=== PATIENT | male | born 1960 | race Caucasian/White ===

== ENCOUNTER 2017-09-13 11:22 | Emergency (ER) | payer OTHER, SELFPAY ==
[2017-09-13] MEDS ORDERED: DUONEB 0.5-3 MG/3 ml Neb IH ONE ×2 (11:41→11:46)
[2017-09-13] MEDS ORDERED: BABY ASPIRIN 81 MG CHEW ONE (11:41)
[2017-09-13] MEDS ORDERED: BABY ASPIRIN 81 MG CHEW PO ONE (11:41)
--- NOTE | 2017-09-13 11:48 | ERPHSYRPT ---
- History of Present Illness Time Seen by Provider: 09/13/17 11:35 Historian: patient Exam Limitations: no limitations Patient Subjective Stated Complaint: pt here for chest pain to center of chest nonradiating since 1000 today, sob and cough ,coughing up green sputum. no fever , pt under lots of stress Triage Nursing Assessment: pt alert,walked in, resp easy,chest clear, skin warm but moist, pink, no edema noted, Physician History: 57-year-old white male arrives with complaint of tightness in his chest shortness of breath coughing green sputum symptoms for 2 days states today began to have pain and tightness in his anterior chest associated with shortness of breath nausea diaphoresis going on since 10:00 Past medical history includes peripheral neuropathy TIA sleep apnea hyperlipidemia, high blood pressure, GERD, depression patient has had a DVT in his right leg past surgical history includes hernia repair Timing/Duration: day(s) (patient was shortness of breath chest tightness diaphoresis for 2 dayswhich began today at 10:00 again) Activities at Onset: none Quality: tightness Location: substernal Chest Pain Radiation: no radiation Severity of Pain-Max: moderate Severity of Pain-Current: mild Modifying Factors: Improves With: nothing Associated Symptoms: nausea, shortness of breath, cough, hurts to breathe, No vomiting, No palpitations, No heartburn, No abdominal pain, No diaphoresis, No chills, No fever, No fatigue, No weakness, No swelling/lump in chest, No syncope , No rash, No headache, No dizziness, No edema, No back pain Nitro Today/Relief: no nitro taken today Aspirin Treatment Today: 81 mg x 1 Allergies/Adverse Reactions: No Known Drug Allergies Allergy (Verified 09/13/17 11:30) Home Medications: Allopurinol 300 mg [Zyloprim 300 mg] 300 mg PO DAILY 06/25/13 [History] Duloxetine HCl 30 mg [Cymbalta 30 MG Capsule] 60 mg PO DAILY 06/25/13 [ History] Multivitamin [Daily Multivitamin] 1 each PO DAILY 06/25/13 [History] Nebivolol HCl 5 MG [Bystolic 5 MG] 5 mg PO HS 06/25/13 [History] Pantoprazole 20 mg [Protonix 20MG Tablet] 40 mg PO DAILY 06/25/13 [History ] Cyanocobalamin (Vitamin B-12) [Vitamin B-12] 1 dose SL DAILY 06/26/13 [History] Albuterol 2.5 mg/3 ml Neb [Proventil 2.5 mg/3 ml Neb] 3 ml BID 09/13/17 [ History] Baclofen 10 mg [Lioresal 10 mg] 10 mg DAILY 09/13/17 [History] Budesonide/Formoterol Fumarate [Symbicort 160-4.5 Mcg Inhaler] 10.2 gm BID 09/13 [History] Bumetanide 1 mg [Bumex 1 mg] 09/13/17 [History] Bumetanide [Bumex] 1 mg DAILY 09/13/17 [History] Gabapentin 100 mg TID 09/13/17 [History] Ipratropium/Albuterol Sulfate [Combivent Inhaler] 14.7 gm QID 09/13/17 [History] Prednisone 10 mg [Deltasone 10 mg] 10 mg DAILY 09/13/17 [History] Hx Tetanus, Diphtheria Vaccination/Date Given: No Hx Influenza Vaccination/Date Given: No Hx Pneumococcal Vaccination/Date Given: No Immunizations Up to Date: Yes - Review of Systems Constitutional: No Fever, No Chills Eyes: No Symptoms Ears, Nose, & Throat: No Symptoms, No Ear Pain, No Ear Discharge, No Hearing Changes, No Tinnitus, No Nose Pain, No Nose Congestion, No Nose Discharge, No Sinus Drainage, No Epistaxis, No Mouth Pain, No Mouth Swelling, No Loose Teeth, No Throat Pain, No Throat Swelling, No Hoarse, No Painful Swallowing, No Snoring , No Stridor Respiratory: Cough, Dyspnea, No Cyanosis, No Dyspnea on Exertion (BARRY), No Stridor, No Wheezing Cardiac: Chest Pain, No Edema, No Palpitations, No Syncope, No Orthopnea, No PND Abdominal/Gastrointestinal: Nausea, No Abdominal Pain, No Vomiting, No Diarrhea , No Constipation, No Hematemesis, No Hematochezia, No Melena, No Dysphagia, No Appetite Changes Genitourinary Symptoms: No Dysuria Musculoskeletal: No Back Pain, No Neck Pain Skin: No Rash Neurological: No Dizziness, No Focal Weakness, No Sensory Changes Psychological: No Symptoms Endocrine: No Symptoms All Other Systems: Reviewed and Negative - Past Medical History Pertinent Past Medical History: Yes Neurological History: Peripheral Neuropathy, TIA ENT History: No Pertinent History Cardiac History: High Cholesterol, Hypertension, Other Respiratory History: Emphysema, Sleep Apnea Endocrine Medical History: No Pertinent History Musculoskeletal History: No Pertinent History GI Medical History: GERD History: No Pertinent History Psycho-Social History: Depression Male Reproductive Disorders: No Pertinent History Other Medical History: Hx: DVT right leg - Past Surgical History Past Surgical History: Yes Neuro Surgical History: No Pertinent History Cardiac: Cardiac Catheterization Respiratory: No Pertinent History Gastrointestinal: Hernia Repair Genitourinary: No Pertinent History Musculoskeletal: No Pertinent History Male Surgical History: No Pertinent History - Social History Smoking Status: Current every day smoker How long have you smoked: 10 Exposure to second hand smoke: Yes Drug Use: none Patient Lives Alone: No - Nursing Vital Signs Nursing Vital Signs: Initial Vital Signs Temperature 97.9 F 09/13/17 11:24 Pulse Rate 75 09/13/17 11:24 Respiratory Rate 24 09/13/17 11:24 Blood Pressure 132/76 09/13/17 11:24 O2 Sat by Pulse Oximetry 97 09/13/17 11:24 Pain Scale Pain Intensity 0 - Physical Exam General Appearance: no apparent distress, alert Eye Exam: PERRL/EOMI, eyes nml inspection Ears, Nose, Throat Exam: normal ENT inspection, moist mucous membranes Neck Exam: normal inspection, non-tender, supple, full range of motion Respiratory Exam: airway intact, rhonchi, wheezing, other (scattered rhonchi with few faint wheezes bilaterally lungs equal bilaterally), No chest tenderness , No lungs clear, No respiratory distress, No diminished breath sounds, No accessory muscle use, No prolonged expirations, No crackles/rales Cardiovascular Exam: regular rate/rhythm, normal heart sounds, normal peripheral pulses Gastrointestinal/Abdomen Exam: soft, No tenderness, No mass Back Exam: normal inspection, No CVA tenderness, No vertebral tenderness Extremity Exam: normal inspection, normal range of motion Neurologic Exam: alert, oriented x 3, cooperative, presentation specialist II-XII nml as tested, normal mood/affect, sensation nml, No motor deficits Skin Exam: normal color, warm, dry SpO2 Interpretation: normal (97%) SpO2: 97 Oxygen Delivery: Room Air - Course Nursing assessment & vital signs reviewed: Yes EKG Interpreted by Me: RATE (69 bpm), Sinus Rhythm, NORMAL AXIS, Other (EKG sinus rhythm 69 bpm normal axis incomplete right bundle branch block no acute ST or T wave changes noted) - Radiology Exams Chest X-ray Interpretation: Discussed w/ radiologist (chest x-ray: Impression: Non- acute chest) Ordered Tests: Active Orders 24 hr Category Date Time Status Millwright Instructor STAT Care 09/13/17 11:40 Active EKG-ER Only STAT Care 09/13/17 11:39 Active IV Insertion STAT Care 09/13/17 11:39 Active Pulse Oximetry (ED) STAT Care 09/13/17 11:39 Active CHEST 1 VIEW (PORTABLE) Stat Exams 09/13/17 11:39 Completed AMYLASE Stat Lab 09/13/17 12:25 Completed CBC W DIFF Stat Lab 09/13/17 11:30 Completed CMP Stat Lab 09/13/17 11:30 Completed D-DIMER QUANTITATION Stat Lab 09/13/17 11:30 Completed LIPASE Stat Lab 09/13/17 12:25 Completed NT PRO BNP Stat Lab 09/13/17 11:30 Completed PROTIME WITH INR Stat Lab 09/13/17 11:30 Completed PTT Stat Lab 09/13/17 11:30 Completed TROPONIN Q3H Lab 09/13/17 11:30 Completed TROPONIN Q3H Lab 09/13/17 14:45 Completed TROPONIN Q3H Lab 09/13/17 17:45 Ordered TROPONIN Q3H Lab 09/13/17 20:45 Ordered TROPONIN Q3H Lab 09/13/17 23:45 Ordered Respiratory Nebulizer STAT RT 09/13/17 11:41 Completed Medication Summary Discontinued Medications Generic Name Dose Route Start Last Admin Trade Name Freq PRN Reason Stop Dose Admin Albuterol/Ipratropium 3 ml 09/13/17 11:41 09/13/17 11:45 Duoneb 0.5-3 Mg/3 Ml Neb IH 09/13/17 11:42 3 ml STAT ONE Administration Albuterol/Ipratropium Confirm 09/13/17 11:46 Duoneb 0.5-3 Mg/3 Ml Neb Administered 09/13/17 11:47 Dose 3 ml IH .STK-MED ONE Aspirin 243 mg 09/13/17 11:41 09/13/17 11:45 Baby Aspirin 81 Mg Chew PO 09/13/17 11:42 243 mg STAT ONE Administration Aspirin Confirm 09/13/17 11:41 Baby Aspirin 81 Mg Chew Administered 09/13/17 11:42 Dose 243 mg .ROUTE .STK-MED ONE Lab/Rad Data: Laboratory Result Diagrams 09/13/17 11:30 09/13/17 11:30 Laboratory Results 09/13/17 09/13/17 09/13/17 Range/Units 14:45 12:25 11:30 WBC (4.0-10.5) K/mm3 RBC (4.1-5.6) M/mm3 Hgb (12.5-18.0) gm/dl Hct (42-50) % MCV (78-100) fl MCH (26-32) pg MCHC (32-36) g/dl RDW (11.5-14.0) % Plt Count (150-450) K/mm3 MPV (6-9.5) fl Gran % (36.0-66.0) % Lymphocytes % (24.0-44.0) % Monocytes % (0.0-12.0) % Eosinophils % (0.00-5.0) % Basophils % (0.0-0.4) % Basophils # (0-0.4) INR (0.8-3.0) APTT (24.1-36.1) SECONDS D-Dimer (0-500) ng/mL Sodium (136-145) mEq/L Potassium (3.5-5.1) mEq/L Chloride (98-107) mEq/L Carbon Dioxide (21-32) mEq/L Anion Gap (5-15) MEQ/L BUN (9-20) mg/dL Creatinine (0.55-1.30) mg/dl Estimated GFR ML/MIN Glucose (70-110) MG/DL Calcium (8.5-10.1) mg/dL Total Bilirubin (0.2-1.0) mg/dL AST (15-37) U/L ALT (12-78) U/L Alkaline Phosphatase (46-116) U/L Troponin I < 0.017 < 0.017 (0.000-0.056) ng/ml NT-Pro-B Natriuret Pep (0-125) pg/ml Serum Total Protein (6.4-8.2) gm/dL Albumin (3.4-5.0) g/dL Amylase 53 (25-115) U/L Lipase 232 (73-393) U/L 09/13/17 09/13/17 09/13/17 Range/Units 11:30 11:30 11:30 WBC 9.1 (4.0-10.5) K/mm3 RBC 4.93 (4.1-5.6) M/mm3 Hgb 14.8 (12.5-18.0) gm/dl Hct 44.0 (42-50) % MCV 89.2 (78-100) fl MCH 30.0 (26-32) pg MCHC 33.6 (32-36) g/dl RDW 13.3 (11.5-14.0) % Plt Count 258 (150-450) K/mm3 MPV 11.9 H (6-9.5) fl Gran % 78.4 H (36.0-66.0) % Lymphocytes % 13.9 L (24.0-44.0) % Monocytes % 6.5 (0.0-12.0) % Eosinophils % 1.0 (0.00-5.0) % Basophils % 0.2 (0.0-0.4) % Basophils # 0.02 (0-0.4) INR 1.07 (0.8-3.0) APTT 28.6 (24.1-36.1) SECONDS D-Dimer 383 (0-500) ng/mL Sodium 143 (136-145) mEq/L Potassium 3.9 (3.5-5.1) mEq/L Chloride 106 (98-107) mEq/L Carbon Dioxide 26.1 (21-32) mEq/L Anion Gap 14.9 (5-15) MEQ/L BUN 19 (9-20) mg/dL Creatinine 1.18 (0.55-1.30) mg/dl Estimated GFR > 60 ML/MIN Glucose 141 H (70-110) MG/DL Calcium 9.6 (8.5-10.1) mg/dL Total Bilirubin 0.30 (0.2-1.0) mg/dL AST 51 H (15-37) U/L ALT 40 (12-78) U/L Alkaline Phosphatase 67 (46-116) U/L Troponin I (0.000-0.056) ng/ml NT-Pro-B Natriuret Pep 46 (0-125) pg/ml Serum Total Protein 8.0 (6.4-8.2) gm/dL Albumin 3.9 (3.4-5.0) g/dL Amylase (25-115) U/L Lipase (73-393) U/L - Progress Progress: improved Air Movement: fair Progress Note: 09/13/17 12:46 Patient feeling better and pain-free after DuoNeb treatment and aspirin. Troponin within normal limits d-dimer within normal limits chest x-ray no acute changes EKG no acute changes as compared to 2013. I've discussed possibly discussing case with Dr. Bauman and the considering placement on observation for rule out. Patient states he does not want to do this. Will go ahead and plan on repeat troponin 3 hours from last draw. 09/13/17 15:25 Patient's repeat troponin within normal limits patient with no more chest pain patient has been stable on the monitor. Patient wants to go home. Will discharge patient. Will place patient on prednisone and Zithromax. He has an inhaler at home. - Departure Time of Disposition: 15:26 Departure Disposition: Home Clinical Impression: Bronchitis, Bronchospasm Chest pain Qualifiers: Chest pain type: unspecified Qualified Code(s): R07.9 - Chest pain, unspecified Condition: Fair Critical Care Time: No Referrals: ROBERT YATES [Primary Care Provider] - Additional Instructions: Return home, rest. Tapering dose of prednisone as directed. Zithromax Z-ANGELIC as directed. Use your inhaler as prescribed by your family doctor. Follow-up with your family doctor. Call today and schedule an appointment. Return for acute distress or for severe symptoms. Prescriptions: Azithromycin 250 mg [Zithromax 250 MG TABLET] 0 mg PO ZPACK #6 tablet
[2017-09-13 11:57] LABS: BASOPHIL % 0.2 % (0.0-0.4); Granulocytes % 78.4 % (36.0-66.0); Lymphocytes % 13.9 % (24.0-44.0); Mean Cell Volume 89.2 fl (78-100); Mean Platelet Volume 11.9 fl (6-9.5); Monocytes % 6.5 % (0.0-12.0); Platelet Count 258 K/mm3 (150-450); Red Blood Count 4.93 M/mm3 (4.1-5.6); Red Cell Distribution Width 13.3 % (11.5-14.0); White Blood Count 9.1 K/mm3 (4.0-10.5)
--- NOTE | 2017-09-13 11:59 | XRAY ---
Indication: Chest pain short of breath. Comparison: May 24, 2016. Portable apical lordotic chest less inflated today and remains clear again with a few incidental calcified granulomas. Heart is not enlarged. Bony thorax intact. Impression: Nonacute chest.
[2017-09-13 12:14] LABS: INR 1.07 (0.8-3.0); PROTIME 11.9 SECONDS (8.83-12.87)
[2017-09-13 12:17] LABS: PTT 28.6 SECONDS (24.1-36.1)
[2017-09-13 12:26] LABS: ALBUMIN 3.9 g/dL (3.4-5.0); ALKALINE PHOSPHATASE 67 U/L (46-116); ANION GAP 14.9 MEQ/L (5-15); BLOOD UREA NITROGEN 19 mg/dL (9-20); CHLORIDE 106 mEq/L (98-107); Carbon Dioxide 26.1 mEq/L (21-32); Glucose 141 MG/DL (70-110); Potassium 3.9 mEq/L (3.5-5.1); SGOT/AST 51 U/L (15-37); SGPT/ALT 40 U/L (12-78); SODIUM 143 mEq/L (136-145)
[2017-09-13 12:48] LABS: LIPASE 232 U/L (73-393)
[2017-09-13 15:29] VITALS: BP 127/57; PULSE 68
[2017-09-13 15:31] VITALS: O2SAT 97
== END 2017-09-13 15:35 | disposition home or self-care (01) ==
LOC: ED 11:22
DX: R07.89 Other chest pain (principal); J40 Bronchitis, not specified as acute or chronic; J98.01 Acute bronchospasm; Z79.899 Other long term (current) drug therapy; I10 Essential (primary) hypertension; E78.5 Hyperlipidemia, unspecified; R11.0 Nausea
CPT/HCPCS: 36000; 36415; 71010; 80053; 82150; 83690; 83880; 84484; 85025; 85379; 85610; 85730; 93005; 93041; 94640; 99284; A9270-GY

== ENCOUNTER 2018-06-25 18:57 | Emergency (ER) | payer OTHER ==
--- NOTE | 2018-06-25 19:20 | ERPHSYRPT ---
- History of Present Illness Time Seen by Provider: 06/25/18 19:00 Source: patient, family Exam Limitations: no limitations Physician History: 58 y/o obese white male with copd presents with soa and cough. 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 better now but still with sx. pt uses oxygen at night and a cpap machine. pt currently denies cp but had mild substernal pain during the coughing spell captain waiter/waitress. pt has a smoking hx but denies smoking currently. pt is on prednisone chronically Timing/Duration: today Activities at Onset: none Severity of Dyspnea-Max: moderate Severity of Dyspnea-Current: mild Possible Cause: occasional episodes Modifying Factors: Improves With: coughing, exertion Associated Symptoms: cough, chest pain/discomfort, No fever, No weakness, No ankle swelling, No dizziness Allergies/Adverse Reactions: No Known Drug Allergies Allergy (Verified 06/25/18 20:11) Home Medications: Allopurinol 300 mg [Zyloprim 300 mg] 300 mg PO DAILY 06/25/13 [History] Duloxetine HCl 30 mg [Cymbalta 30 MG Capsule] 90 mg PO DAILY 06/25/13 [ History] Multivitamin [Daily Multivitamin] 1 each PO DAILY 06/25/13 [History] Nebivolol HCl 5 MG [Bystolic 5 MG] 5 mg PO HS 06/25/13 [History] Pantoprazole 20 mg [Protonix 20MG Tablet] 40 mg PO DAILY 06/25/13 [History ] Albuterol 2.5 mg/3 ml Neb [Proventil 2.5 mg/3 ml Neb] 3 ml BID 09/13/17 [ History] Bumetanide [Bumex] 1 mg DAILY 09/13/17 [History] Gabapentin 100 mg TID 09/13/17 [History] Ipratropium/Albuterol Sulfate [Combivent Inhaler] 14.7 gm QID 09/13/17 [History] Prednisone 10 mg [Deltasone 10 mg] 10 mg DAILY 09/13/17 [History] Metformin HCl 500 mg [Glucophage 500 MG] 1,000 mg PO DAILY 06/25/18 [ History] Hx Tetanus, Diphtheria Vaccination/Date Given: No Hx Influenza Vaccination/Date Given: No Hx Pneumococcal Vaccination/Date Given: No - Review of Systems Constitutional: No Symptoms, No Fever, No Chills Eyes: No Symptoms Ears, Nose, & Throat: No Symptoms Respiratory: Cough, Dyspnea, Wheezing Cardiac: No Symptoms, Chest Pain, No Palpitations, No Syncope Abdominal/Gastrointestinal: No Symptoms, No Abdominal Pain, No Nausea, No Vomiting, No Diarrhea Genitourinary Symptoms: No Symptoms Musculoskeletal: No Symptoms, No Back Pain, No Fall, No Injury Neurological: No Symptoms Psychological: No Symptoms Endocrine: No Symptoms Hematologic/Lymphatic: No Symptoms Immunological/Allergic: No Symptoms All Other Systems: Reviewed and Negative - Past Medical History Pertinent Past Medical History: Yes Neurological History: Peripheral Neuropathy, TIA ENT History: No Pertinent History Cardiac History: High Cholesterol, Hypertension, Other Respiratory History: Emphysema, Sleep Apnea Endocrine Medical History: No Pertinent History Musculoskeletal History: No Pertinent History GI Medical History: GERD History: No Pertinent History Psycho-Social History: Depression Male Reproductive Disorders: No Pertinent History Other Medical History: Hx: DVT right leg - Past Surgical History Past Surgical History: Yes Neuro Surgical History: No Pertinent History Cardiac: Cardiac Catheterization Respiratory: No Pertinent History Gastrointestinal: Hernia Repair Genitourinary: No Pertinent History Musculoskeletal: No Pertinent History Male Surgical History: No Pertinent History - Social History Smoking Status: Current every day smoker How long have you smoked: 10 Exposure to second hand smoke: Yes Drug Use: none Patient Lives Alone: No - Nursing Vital Signs Nursing Vital Signs: Initial Vital Signs Pulse Rate 73 06/25/18 18:57 Respiratory Rate 14 06/25/18 18:57 Blood Pressure 151/94 06/25/18 18:57 O2 Sat by Pulse Oximetry 97 06/25/18 18:57 Pain Scale Pain Intensity 0 - Physical Exam General Appearance: mild distress, alert, anxiety Eye Exam: PERRL/EOMI, post op pupil defect (L) Ears, Nose, Throat Exam: hearing grossly normal, normal ENT inspection, normal pharynx Neck Exam: normal inspection, non-tender, supple, full range of motion Respiratory Exam: normal breath sounds, lungs clear, airway intact, stridor, No chest tenderness, No respiratory distress, No accessory muscle use, No wheezing Cardiovascular/Chest Exam: normal heart sounds, regular rate/rhythm, normal peripheral pulses Abdominal/Gastrointestinal Exam: soft, normal bowel sounds, No tenderness, No guarding, No rebound Rectal Exam: deferred Extremity Exam: non-tender, normal range of motion, normal inspection, normal capillary refill Peripheral Pulses Exam: carotid (R): 2+, carotid (L): 2+, femoral (R): 2+, femoral (L): 2+ Neurologic Exam: alert, oriented x 3, cooperative, 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 II-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 nml as tested, normal mood/affect, nml cerebellar function, nml station & gait Skin Exam: normal color, warm, dry Lymphatic Exam: No adenopathy SpO2 Interpretation: normal SpO2: 97 Oxygen Delivery: Nasal Cannula - Course Nursing assessment & vital signs reviewed: Yes EKG Interpreted by Me: RATE, Sinus Rhythm, NORMAL AXIS, Right Bundle Branch Block, NORMAL ST-T (comparison 06/26/13 no sig changes), Other (incomplete left ant fascicular block) Ordered Tests: Active Orders 24 hr Category Date Time Status Agile Project Manager STAT Care 06/25/18 19:27 Active EKG-ER Only STAT Care 06/25/18 19:26 Active IV Insertion STAT Care 06/25/18 19:26 Active Oxygen-ED Only NASAL CANNULA 2 lpm Care 06/25/18 19:26 Active Pulse Oximetry (ED) STAT Care 06/25/18 19:26 Active CHEST 1 VIEW (PORTABLE) Stat Exams 06/25/18 19:26 Taken CBC W DIFF Stat Lab 06/25/18 19:07 Completed CMP Stat Lab 06/25/18 19:07 Completed NT PRO BNP Stat Lab 06/25/18 19:07 Completed TROPONIN Q3H Lab 06/25/18 19:07 Completed TROPONIN Q3H Lab 06/25/18 22:30 Ordered TROPONIN Q3H Lab 06/26/18 01:30 Ordered TROPONIN Q3H Lab 06/26/18 04:30 Ordered TROPONIN Q3H Lab 06/26/18 07:30 Ordered Respiratory Nebulizer STAT RT 06/25/18 19:28 Completed Medication Summary Discontinued Medications Generic Name Dose Route Start Last Admin Trade Name Freq PRN Reason Stop Dose Admin Albuterol/Ipratropium 3 ml 06/25/18 19:26 06/25/18 19:43 Duoneb 0.5-3 Mg/3 Ml Neb IH 06/25/18 19:27 3 ml STAT ONE Administration Albuterol/Ipratropium Confirm 06/25/18 19:42 Duoneb 0.5-3 Mg/3 Ml Neb Administered 06/25/18 19:43 Dose 3 ml IH .STK-MED ONE Methylprednisolone Sodium Succinate 125 mg 06/25/18 19:26 06/25/18 19:31 Solu-Medrol 125 Mg IV 06/25/18 19:27 125 mg STAT ONE Administration Methylprednisolone Sodium Succinate Confirm 06/25/18 19:30 Solu-Medrol 125 Mg Administered 06/25/18 19:31 Dose 125 mg .ROUTE .STK-MED ONE Lab/Rad Data: Laboratory Result Diagrams 06/25/18 19:07 06/25/18 19:07 Laboratory Results 06/25/18 06/25/18 06/25/18 Range/Units 19:07 19:07 19:07 WBC 10.1 (4.0-10.5) K/mm3 RBC 5.19 (4.1-5.6) M/mm3 Hgb 15.5 (12.5-18.0) gm/dl Hct 44.3 (42-50) % MCV 85.4 (78-100) fl MCH 29.9 (26-32) pg MCHC 35.0 (32-36) g/dl RDW 13.0 (11.5-14.0) % Plt Count 247 (150-450) K/mm3 MPV 11.5 H (6-9.5) fl Gran % 65.5 (36.0-66.0) % Eos # (Auto) 0.16 (0-0.5) Absolute Lymphs (auto) 2.42 (1.0-4.6) Absolute Monos (auto) 0.89 (0.0-1.3) Lymphocytes % 23.9 L (24.0-44.0) % Monocytes % 8.8 (0.0-12.0) % Eosinophils % 1.6 (0.00-5.0) % Basophils % 0.2 (0.0-0.4) % Absolute Granulocytes 6.64 (1.4-6.9) Basophils # 0.02 (0-0.4) Sodium 145 (137-145) mmol/L Potassium 3.6 (3.5-5.1) mmol/L Chloride 105 (98-107) mmol/L Carbon Dioxide 27 (22-30) mmol/L Anion Gap 16.7 H (5-15) MEQ/L BUN 31 H (9-20) mg/dL Creatinine 1.23 (0.66-1.25) mg/dL Estimated GFR > 60.0 ML/MIN Glucose 115 H (74-106) mg/dL Calcium 10.5 H (8.4-10.2) mg/dL Total Bilirubin 0.40 (0.2-1.3) mg/dL AST 34 (17-59) U/L ALT 42 (0-50) U/L Alkaline Phosphatase 91 (38-126) U/L Troponin I < 0.012 (0.000-0.034) ng/mL NT-Pro-B Natriuret Pep 53.3 (0-900) pg/mL Serum Total Protein 8.7 H (6.3-8.2) g/dL Albumin 5.0 (3.5-5.0) g/dL - Progress Progress: improved, re-examined Air Movement: good Progress Note: 06/25/18 21:10 pt has no cp and is breathing well. he does not want any cough medicine. he wants to go home Blood Culture(s) Obtained: No Antibiotics given: No Counseled pt/family regarding: lab results, diagnosis, need for follow-up, rad results - Departure Time of Disposition: 21:13 Departure Disposition: Home Clinical Impression: COPD exacerbation Condition: Good Critical Care Time: No Referrals: ELVIE FRY MD [Primary Care Provider] - Instructions: Chronic Obstructive Pulmonary Disease Additional Instructions: take medications as prescribed. follow up with primary doctor for further management. use your inhalers and nebulizer treatments on a scheduled basis as discussed.
[2018-06-25] MEDS ORDERED: DUONEB 0.5-3 MG/3 ml Neb IH ONE ×2 (19:26→19:42)
[2018-06-25] MEDS ORDERED: solu-MEDROL 125 MG IV ONE (19:26)
[2018-06-25] MEDS ORDERED: solu-MEDROL 125 MG ONE (19:30)
[2018-06-25 19:43] LABS: BASOPHIL % 0.2 % (0.0-0.4); Basophil (Absolute #) 0.02 (0-0.4); Eosinophil % 1.6 % (0.00-5.0); Eosinophil (Absolute #) 0.16 (0-0.5); Granulocyte Absolute (ANC) 6.64 (1.4-6.9); Granulocytes % 65.5 % (36.0-66.0); Hematocrit 44.3 % (42-50); Hemoglobin 15.5 gm/dl (12.5-18.0); Lymphocyte (Absolute #) 2.42 (1.0-4.6); Lymphocytes % 23.9 % (24.0-44.0); Mean Cell Volume 85.4 fl (78-100); Mean Corpuscular Hemoglobin 29.9 pg (26-32); Mean Platelet Volume 11.5 fl (6-9.5); Monocyte (Absolute #) 0.89 (0.0-1.3); Monocytes % 8.8 % (0.0-12.0); Platelet Count 247 K/mm3 (150-450); Red Blood Count 5.19 M/mm3 (4.1-5.6); White Blood Count 10.1 K/mm3 (4.0-10.5)
[2018-06-25 20:02] LABS: ALKALINE PHOSPHATASE 91 U/L (38-126); ANION GAP 16.7 MEQ/L (5-15); BLOOD UREA NITROGEN 31 mg/dL (9-20); CHLORIDE 105 mmol/L (98-107); Calcium 10.5 mg/dL (8.4-10.2); Carbon Dioxide 27 mmol/L (22-30); Creatinine 1 1.23 mg/dL (0.66-1.25); Glucose 115 mg/dL (74-106); Potassium 3.6 mmol/L (3.5-5.1); SGOT/AST 34 U/L (17-59); SGPT/ALT 42 U/L (0-50); SODIUM 145 mmol/L (137-145); Total Protein 8.7 g/dL (6.3-8.2)
[2018-06-25 20:09] LABS: NT PRO BNP 53.3 pg/mL (0-900)
[2018-06-25 21:23] VITALS: BP 139/84; PULSE 75; O2SAT 98
--- NOTE | 2018-06-26 08:50 | XRAY ---
Indication: Chest pain, cough, short of breath. Comparison: February 03, 2018. Portable chest again demonstrates normal heart and lungs with incidental calcified granulomas. Bony thorax intact. No new/acute findings.
== END 2018-06-25 21:23 | disposition home or self-care (01) ==
LOC: ED 18:57
DX: J44.1 Chronic obstructive pulmonary disease with (acute) exacerbation (principal); Z79.899 Other long term (current) drug therapy
CPT/HCPCS: 36000; 36415; 71045; 80053; 83880; 84484; 85025; 93005; 93041; 94150; 94640; 96374; 99284; J2930; A9270-GY

== ENCOUNTER 2022-05-21 20:58 | Emergency (ER) | payer OTHER ==
--- NOTE | 2022-05-21 21:05 | ERPHSYRPT ---
- History of Present Illness Time Seen by Provider: 05/21/22 21:05 Source: patient, family Exam Limitations: no limitations Physician History: This is an obese 62-year-old white male patient of nurse practitioner Sweta Peck who presents with painful swallowing. Patient took several of his pills last night and one of the pills was caught at the level of his throat. He coughed several times. He has felt that there is something there in the back of his throat every time he swallows. Since that time he has been able to take his medicine and drink clear liquids/liquids without any difficulty. He is afraid to advance his diet to a regular diet because he is concerned that he may choke on regular food. Patient drank liquids and took his medication this evening prior to evaluation here in the emergency department. He has no shortness of breath or difficulty breathing. There is no stridor present. Patient is a current every day smoker. He has a history of gastroesophageal reflux disease, COPD, [id number] diabetes, and peripheral neuropathy. Severity: mild Associated Symptoms: denies symptoms Allergies/Adverse Reactions: No Known Drug Allergies Allergy (Verified 05/21/22 21:12) Home Medications: Allopurinol 300 mg [Zyloprim 300 mg] 300 mg PO DAILY 06/25/13 [History] Duloxetine HCl 30 mg [Cymbalta 30 MG Capsule] 90 mg PO DAILY 06/25/13 [History] Multivitamin [Daily Multivitamin] 1 each PO DAILY 06/25/13 [History] Nebivolol HCl 5 MG [Bystolic 5 MG] 5 mg PO HS 06/25/13 [History] Pantoprazole 20 mg [Protonix 20MG Tablet] 40 mg PO DAILY 06/25/13 [History] Albuterol 2.5 mg/3 ml Neb [Proventil 2.5 mg/3 ml Neb] 3 ml BID 09/13/17 [History] Bumetanide [Bumex] 1 mg DAILY 09/13/17 [History] Gabapentin 100 mg TID 09/13/17 [History] Ipratropium/Albuterol Sulfate [Combivent Inhaler] 14.7 gm QID 09/13/17 [History] Prednisone 10 mg [Deltasone 10 mg] 10 mg DAILY 09/13/17 [History] Metformin HCl 500 mg [Glucophage 500 MG] 1,000 mg PO DAILY 06/25/18 [History] Hx Tetanus, Diphtheria Vaccination/Date Given: No Hx Influenza Vaccination/Date Given: No Hx Pneumococcal Vaccination/Date Given: No Travel Risk - International Travel Have you traveled outside of the country in past 3 weeks: No - Coronavirus Screening Are you exhibiting any of the following symptoms?: No Close contact with a COVID-19 positive Pt in past 14-21 Days: No - Review of Systems Constitutional: No Symptoms Eyes: No Symptoms Ears, Nose, & Throat: Painful Swallowing Respiratory: No Symptoms Cardiac: No Symptoms Abdominal/Gastrointestinal: No Symptoms Genitourinary Symptoms: No Symptoms Musculoskeletal: No Symptoms Skin: No Symptoms Neurological: No Symptoms Psychological: No Symptoms Endocrine: No Symptoms Hematologic/Lymphatic: No Symptoms Immunological/Allergic: No Symptoms All Other Systems: Reviewed and Negative - Past Medical History Pertinent Past Medical History: Yes Neurological History: Peripheral Neuropathy, TIA ENT History: No Pertinent History Cardiac History: High Cholesterol, Hypertension, Other Respiratory History: Emphysema, Sleep Apnea Endocrine Medical History: No Pertinent History Musculoskeletal History: No Pertinent History GI Medical History: GERD History: No Pertinent History Psycho-Social History: Depression Male Reproductive Disorders: No Pertinent History Other Medical History: Hx: DVT right leg - Past Surgical History Past Surgical History: Yes Neuro Surgical History: No Pertinent History Cardiac: Cardiac Catheterization Respiratory: No Pertinent History Gastrointestinal: Hernia Repair Genitourinary: No Pertinent History Musculoskeletal: No Pertinent History Male Surgical History: No Pertinent History - Social History Smoking Status: Current every day smoker How long have you smoked: 10 Exposure to second hand smoke: Yes Drug Use: none Patient Lives Alone: No - Nursing Vital Signs Nursing Vital Signs: Initial Vital Signs Temperature 98.0 F 05/21/22 21:05 Pulse Rate 89 05/21/22 21:05 Respiratory Rate 20 05/21/22 21:05 Blood Pressure 143/84 05/21/22 21:05 O2 Sat by Pulse Oximetry 97 05/21/22 21:05 Pain Scale Pain Intensity 2 - Physical Exam General Appearance: no apparent distress, alert, anxiety, obese Eye Exam: PERRL/EOMI, eyes nml inspection Ears, Nose, Throat Exam: normal ENT inspection, moist mucous membranes Neck Exam: normal inspection, non-tender, supple, full range of motion Respiratory Exam: normal breath sounds, lungs clear, airway intact, No chest tenderness, No respiratory distress, No wheezing, No stridor Cardiovascular Exam: regular rate/rhythm, normal heart sounds, normal peripheral pulses Gastrointestinal/Abdomen Exam: soft, normal bowel sounds, No tenderness Rectal Exam: not done Back Exam: normal inspection, normal range of motion, No CVA tenderness, No vertebral tenderness Extremity Exam: normal inspection, normal range of motion, pelvis stable Neurologic Exam: alert, oriented x 3, cooperative, role player II-XII nml as tested, normal mood/affect, nml cerebellar function, nml station & gait, sensation nml Skin Exam: normal color, warm, dry Lymphatic Exam: No adenopathy SpO2 Interpretation: normal O2 Delivery: Room Air - Course Nursing assessment & vital signs reviewed: Yes Ordered Tests: Medication Summary Discontinued Medications Generic Name Dose Route Start Last Admin Trade Name Sanjeevq PRN Reason Stop Dose Admin Hydrocodone Bitart/Acetaminophen 10 ml 05/21/22 21:42 Hydrocodone/Acetaminophen 5 Ml Udcup PO 05/21/22 21:43 STAT STA Prednisone 20 mg 05/21/22 21:42 Prednisone 20 Mg Tablet PO 05/21/22 21:43 STAT ONE - Progress Progress: improved Progress Note: 05/21/22 21:48 Medical decision making: This patient does not have an esophageal obstruction with a foreign body. He is able to tolerate oral intake with clear and full liquids as well as take his medication. Likely, the mucosal lining is irritated and inflamed and so there is a sensation of a foreign body or irritation every time he swallows. We will provide him with a dose of oral steroids and liquid hydrocodone in the emergency department here followed by sending him home with a dose of liquid hydrocodone that he can take in 6 to 8 hours if needed. He is to continue the clear to full liquids and then advance to a soft diet as tolerated. He has an appointment to see his primary care provider on 05/23/2022. Counseled pt/family regarding: diagnosis, need for follow-up, rad results - Departure Departure Disposition: Home Clinical Impression: Pharyngitis Condition: Stable Critical Care Time: No Referrals: ELVIE FRY MD [Primary Care Provider] - Follow up/PCP as directed Additional Instructions: Drink plenty of clear liquids. Advance to full liquids then a soft diet as tolerated in a sequential, stepwise fashion as discussed. Keep your appointment with your primary care provider on 05/23/2022. Return to the emergency department if symptoms worsen.
[2022-05-21] MEDS ORDERED: HYDROCODONE-ACETAMIN 2.5-108/5 ML SOLUTION PO STA ×2 (21:42→21:50)
[2022-05-21] MEDS ORDERED: DELTASONE 20 MG PO ONE (21:42)
[2022-05-21] MEDS ORDERED: HYDROCODONE-ACETAMIN 2.5-108/5 ML SOLUTION ONE ×2 (21:46→21:57)
[2022-05-21] MEDS ORDERED: DELTASONE 20 MG ONE (21:47)
[2022-05-21 21:56] VITALS: BP 143/89; PULSE 86; O2SAT 99
== END 2022-05-21 22:05 | disposition home or self-care (01) ==
LOC: ED 20:58
DX: J02.9 Acute pharyngitis, unspecified (principal); J44.9 Chronic obstructive pulmonary disease, unspecified; E11.42 Type 2 diabetes mellitus with diabetic polyneuropathy; E78.5 Hyperlipidemia, unspecified; I10 Essential (primary) hypertension; Z72.0 Tobacco use; Z79.84 Long term (current) use of oral hypoglycemic drugs; Z79.52 Long term (current) use of systemic steroids; Z79.899 Other long term (current) drug therapy
CPT/HCPCS: 99283; A9270-GY

== ENCOUNTER 2022-12-28 11:52 | Emergency (ER) | payer OTHER ==
[2022-12-28 12:03] VITALS: BP 144/84; PULSE 64; O2SAT 96
[2022-12-28] MEDS ORDERED: XYLOCAINE 1% HCL 20 ML MDV ONE (12:37)
[2022-12-28] MEDS ORDERED: Adacel Vial IM ONE ×2 (12:39)
[2022-12-28] MEDS ORDERED: XYLOCAINE 1% HCL 20 ML MDV IJ ONE (12:40)
--- NOTE | 2022-12-28 13:11 | XRAY ---
Indication: Forehead laceration. Multiple contiguous axial images obtained through the head without contrast. Comparison: None Normal appearing brain parenchyma, ventricles, and bony calvarium. Small right frontal laceration with 1.5 mm radiopaque foreign body. Paranasal sinuses and mastoid air cells are clear. Impression: Right frontal laceration with tiny foreign body. Otherwise normal CT head without contrast exam.
--- NOTE | 2022-12-28 13:47 | ERPHSYRPT ---
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 has laceration to forehead, no bleeding at present time, pt refuses to have cleaned up until numbed Physician History: Patient is a 62-year-old male presents to emergency department for evaluation of laceration to forehead. Patient states he was cutting angle iron using a cutlery grinder. The cutlery grinder kicked back and lacerated the area between his eyes and over the right eyebrow. Injury occurred just prior to arrival. Tetanus not up-to-date. No injury to the globe or to the eyes. Otherwise no trauma no fever. Symptoms are mild to moderate in intensity. No specific worsening improving factors. Patient voices no other complaints or concerns at this time. Portions of this note were created with voice recognition technology. There may be grammatical, spelling, punctuation or sound alike errors Timing/Duration: today Severity: moderate Modifying Factors: Improves With: other Associated Symptoms: denies symptoms Allergies/Adverse Reactions: No Known Drug Allergies Allergy (Verified 12/28/22 11:59) Home Medications: Allopurinol 300 mg [Zyloprim 300 mg] 300 mg PO DAILY 06/25/13 [History] Duloxetine HCl 30 mg [Cymbalta 30 MG Capsule] 90 mg PO DAILY 06/25/13 [History] Multivitamin [Daily Multivitamin] 1 each PO DAILY 06/25/13 [History] Nebivolol HCl 5 MG [Bystolic 5 MG] 5 mg PO HS 06/25/13 [History] Pantoprazole 20 mg [Protonix 20MG Tablet] 40 mg PO DAILY 06/25/13 [History] Albuterol 2.5 mg/3 ml Neb [Proventil 2.5 mg/3 ml Neb] 3 ml BID 09/13/17 [History] Bumetanide [Bumex] 1 mg DAILY 09/13/17 [History] Gabapentin 100 mg TID 09/13/17 [History] Metformin HCl 500 mg [Glucophage 500 MG] 1,000 mg PO DAILY 06/25/18 [History] Hx Tetanus, Diphtheria Vaccination/Date Given: No Hx Influenza Vaccination/Date Given: No Hx Pneumococcal Vaccination/Date Given: Yes Immunizations Up to Date: Yes Travel Risk - International Travel Have you traveled outside of the country in past 3 weeks: No - Coronavirus Screening Are you exhibiting any of the following symptoms?: No - Vaccine Status Have you recieved a Covid-19 vaccination: Yes [employer]: Moderna - Vaccination Dates Date of 2cond Vaccination (if applicable): . - Review of Systems Constitutional: No Symptoms, No Fever, No Chills Eyes: No Symptoms Ears, Nose, & Throat: No Symptoms Respiratory: No Symptoms, No Cough, No Dyspnea Cardiac: No Symptoms, No Chest Pain, No Edema, No Syncope Abdominal/Gastrointestinal: No Symptoms, No Abdominal Pain, No Nausea, No Vomiting, No Diarrhea Genitourinary Symptoms: No Symptoms, No Dysuria Musculoskeletal: No Symptoms, No Back Pain, No Neck Pain Skin: No Symptoms, No Rash Neurological: No Symptoms, No Dizziness, No Focal Weakness, No Sensory Changes Psychological: No Symptoms Endocrine: No Symptoms Hematologic/Lymphatic: No Symptoms Immunological/Allergic: No Symptoms All Other Systems: Reviewed and Negative - Past Medical History Pertinent Past Medical History: Yes Neurological History: Peripheral Neuropathy, TIA ENT History: No Pertinent History Cardiac History: High Cholesterol, Hypertension, Other Respiratory History: Emphysema, Sleep Apnea Endocrine Medical History: No Pertinent History Musculoskeletal History: No Pertinent History GI Medical History: GERD History: No Pertinent History Psycho-Social History: Depression Male Reproductive Disorders: No Pertinent History Other Medical History: Hx: DVT right leg - Past Surgical History Past Surgical History: Yes Neuro Surgical History: No Pertinent History Cardiac: Cardiac Catheterization Respiratory: No Pertinent History Gastrointestinal: Hernia Repair Genitourinary: No Pertinent History Musculoskeletal: No Pertinent History Male Surgical History: No Pertinent History - Social History Smoking Status: Current every day smoker How long have you smoked: 10 Exposure to second hand smoke: Yes Drug Use: none Patient Lives Alone: No - Nursing Vital Signs Nursing Vital Signs: Initial Vital Signs Temperature 97.0 F 12/28/22 12:01 Pulse Rate 64 12/28/22 12:01 Respiratory Rate 18 12/28/22 12:01 Blood Pressure 144/84 12/28/22 12:01 O2 Sat by Pulse Oximetry 96 12/28/22 12:01 Pain Scale Pain Intensity 0 - Physical Exam General Appearance: no apparent distress, alert Eye Exam: PERRL/EOMI, eyes nml inspection Ears, Nose, Throat Exam: normal ENT inspection, TMs normal, pharynx normal, moist mucous membranes Neck Exam: normal inspection, non-tender, supple, full range of motion Respiratory Exam: normal breath sounds, lungs clear, airway intact, No respiratory distress Cardiovascular Exam: regular rate/rhythm, normal heart sounds, normal peripheral pulses Gastrointestinal/Abdomen Exam: soft, normal bowel sounds, No tenderness, No mass Back Exam: normal inspection, normal range of motion, No CVA tenderness, No vertebral tenderness Extremity Exam: normal inspection, normal range of motion, pelvis stable Neurologic Exam: alert, oriented x 3, cooperative, normal mood/affect, nml cerebellar function, nml station & gait, sensation nml, No motor deficits Skin Exam: normal color, warm, dry, No rash Lymphatic Exam: No adenopathy SpO2 Interpretation: normal SpO2: 96 O2 Delivery: Room Air Procedures - Laceration/Wound Repair Face Time of Procedure: 15:00 Wound Location: Right (Right frontal laceration) Wound Length (cm): 2.5 Wound's Depth, Shape: into subcut Wound Explored: foreign body removed Irrigated: Yes Hibiclens Prep: Yes Anesthesia: 1% Lidocaine Volume Anesthetic (ccs): 5 Wound Debrided: moderate Wound Repaired With: sutures Suture Size/Type: 5-0, nylon Number of Sutures: 11 Layer Closure?: No Sterile Dressing Applied?: Yes Splint Applied?: No - Course Nursing assessment & vital signs reviewed: Yes - CT Exams Head CT Interpretation: Tele-radiologist Report (Right frontal laceration with tiny foreign body otherwise negative) Ordered Tests: Active Orders 24 hr Category Date Time Status FACIAL BONES (MINIMUM 3 VIEWS) Stat Exams 12/28/22 14:08 Completed HEAD WITHOUT CONTRAST [CT] Stat Exams 12/28/22 12:34 Completed Medication Summary Discontinued Medications Generic Name Dose Route Start Last Admin Trade Name Freq PRN Reason Stop Dose Admin Acetaminophen 975 mg 12/28/22 15:24 Acetaminophen 325 Mg Tablet PO 12/28/22 15:25 STAT ONE Cephalexin HCl 500 mg 12/28/22 15:25 Cephalexin 500 Mg Capsule PO 12/28/22 15:26 STAT ONE Diphtheria/Tetanus/Acell Pertussis 0.5 ml 12/28/22 12:39 12/28/22 12:49 Tdap --Diph,Pertuss(Acell),Tet Vac/Pf 0.5 Ml Vial IM 12/28/22 12:40 0.5 ml .ONCE ONE Administration Diphtheria/Tetanus/Acell Pertussis Confirm 12/28/22 12:39 Tdap --Diph,Pertuss(Acell),Tet Vac/Pf 0.5 Ml Vial Administered 12/28/22 12:40 Dose 0.5 ml IM .STK-MED ONE Lidocaine HCl Confirm 12/28/22 12:37 Lidocaine Hcl 1% 20 Ml Mdv 20 Ml Ml Administered 12/28/22 12:38 Dose 5 ml .ROUTE .STK-MED ONE Lidocaine HCl 5 ml 12/28/22 12:40 12/28/22 12:50 Lidocaine Hcl 1% 20 Ml Mdv 20 Ml Ml IJ 12/28/22 12:41 5 ml STAT ONE Administration - Progress Progress: improved Progress Note: 62-year-old male presents to our ED with a laceration to the area between the eyes and right frontal forehead. Patient was using a cutlery grinder when it kicked back and injured our patient. No involvement of the eyes eyelids or globe. Physical exam reveals a 2.5 cm laceration. Patient's presentation is acute. Complexity is mild. No significant comorbidities to complicate patient's presentation at this time. Work-up reveals CT head which shows a laceration and foreign body. Foreign body was mechanically debrided and irrigated. We followed up with a soft tissue face x-ray to confirm removal of foreign body. Foreign body removal was successful. No foreign body observed on the x-ray or visually upon examination after mechanical debridement and irrigation. Lidocaine was used anesthetize the wound. Tetanus was not up-to-date. Patient received a dose of tetanus in our ED. Patient also received a dose of Tylenol to assist with additional pain control. Patient received a dose of Keflex as well due to the complexity of the wound. 11 sutures were placed. Following the sutures patient received bacitracin to the wound and a bulky dressing. The findings on the imaging studies assisted with medical decision making. Plan of care discussed with patient. He agrees to follow-up with primary care doctor within 48 hours for evaluation. Patient has a means to follow through with plan of care. Level of EM service provided was straightforward. Complexity of problem was straightforward. Amount and complexity of data reviewed was mild. Risk of complications and or risk of morbidity/mortality of patient management was mild. No critical care time. Patient served as independent historian however patient's was at bedside added to our HPI. No internal audit consultant required. . Discharge prescriptions include Keflex and Toradol. Patient will require 48- hour follow-up for reassessment. Sutures may be removed in 1 week. Patient responded well to our treatment. He feels much better. Time spent during discharge is approximately 15 minutes. Patient will be discharged home. Portions of this note were created with voice recognition technology. There may be grammatical, spelling, punctuation or sound alike errors 12/28/22 15:39 Counseled pt/family regarding: diagnosis, need for follow-up, rad results - Departure Departure Disposition: Home Clinical Impression: Laceration, Foreign body Condition: Stable Critical Care Time: No Referrals: ELVIE FRY MD [Primary Care Provider] - Follow up/PCP as directed Additional Instructions: Discharge/Care Plan VIREAJAY was seen on 12/28/22 in the Emergency Room. The patient was counseled regarding Diagnosis,Lab results, Imaging studies, need for follow up and when to return to the Emergency Room. Prescriptions given: Discharge Note I have spoken with the patient and/or caregivers. I have explained the patient's condition, diagnosis and treatment plan based on the information available to me at this time. I have answered the patient's and/or caregiver's questions and addressed any concerns. The patient and/or caregivers have as good understanding of the patient's diagnosis, condition and treatment plan as can be expected at this point. The vital signs have been stable. The patient's condition is stable and appropriate for discharge from the emergency department. The patient will pursue further outpatient evaluation with the primary care physician or other designated or consulting physician as outlined in the discharge instructions. The patient and/or caregivers are agreeable to this plan of care and follow-up instructions have been explained in detail. The patient and/or caregivers have received these instruction. The patient/and or caregivers are aware that any significant change in condition or worsening of symptoms should prompt an immediate return to this or the closest emergency department or call 911. Prescriptions: Cephalexin Mh 500 mg [Keflex 500 mg] 500 mg PO TID #21 cap Ketorolac Trometh 10 mg Tab [TORAdol 10 MG TABLET] 10 mg PO TID 5 Days #15 tablet
--- NOTE | 2022-12-28 14:31 | XRAY ---
Indication: Forehead laceration. Foreign body. Comparison: None 3 view facial bones negative for radiopaque foreign body. Minimal right carotid calcifications. No other bony, articular, or soft tissue abnormalities.
[2022-12-28] MEDS ORDERED: TYLENOL 325 MG PO ONE (15:24)
[2022-12-28] MEDS ORDERED: KEFLEX 500 MG PO ONE (15:25)
[2022-12-28] MEDS ORDERED: KEFLEX 500 MG ONE (15:27)
[2022-12-28] MEDS ORDERED: TYLENOL 325 MG ONE (15:27)
[2022-12-28] MEDS ORDERED: BACIGUENT PACKET ONE (15:27)
[2022-12-28] MEDS ORDERED: BACIGUENT PACKET TP ONE (15:28)
== END 2022-12-28 15:40 | disposition home or self-care (01) ==
LOC: ED 11:52
DX: S01.82XA Laceration with foreign body of other part of head, initial encounter (principal); W20.8XXA Other cause of strike by thrown, projected or falling object, initial encounter; E78.5 Hyperlipidemia, unspecified; I10 Essential (primary) hypertension; Z79.84 Long term (current) use of oral hypoglycemic drugs; Z79.899 Other long term (current) drug therapy; Z72.0 Tobacco use
CPT/HCPCS: 12011; 70150; 70450; 90471; 90715; 99284; A9270-GY

== ENCOUNTER 2023-02-15 14:40 | Observation (INO) | payer OTHER ==
--- NOTE | 2023-02-15 17:13 | ERPHSYRPT ---
- History of Present Illness Time Seen by Provider: 02/15/23 17:13 Source: patient Exam Limitations: no limitations Patient Subjective Stated Complaint: "sores on feet first noticed 2 wks ago" Triage Nursing Assessment: Pt aaox3, walked in, c/o "sores" to both feet first noticed 2 wks ago. Patient is diabetic. C/o severe pain. Patient seen Nurse practitioner Aubrie Huntley last week and also today. Was given a cream to use but has not got better. Physician History: 63yo M presents to the ED from his PCP office for failed outpatient treatment of cellulitis. Patient reports a 2 week hx of painful, red feet. He has tried antifungal creams and abx w/ no improvement. Today the redness has worsened and his pain is 10/10. He has a hx of DMII, but no hx of non healing wounds. He denies fevers, chills, nausea, vomiting, abd pain or CP. Timing/Duration: week(s) Quality: burning, painful Severity: severe Location: feet Possible Causes: no cause identified Modifying Factors: Improves With: other (Keflex worsening, Antifungun worsened) Associated Symptoms: change in skin texture, numbness, paresthesia, No difficulty breathing, No edema, No fever Allergies/Adverse Reactions: No Known Drug Allergies Allergy (Verified 02/15/23 20:53) Home Medications: Allopurinol 300 mg [Zyloprim 300 mg] 300 mg PO DAILY 06/25/13 [History] Duloxetine HCl 30 mg [Cymbalta 30 MG Capsule] 180 mg PO HS 06/25/13 [History] Multivitamin [Daily Multivitamin] 1 each PO DAILY 06/25/13 [History] Pantoprazole 20 mg [Protonix 20MG Tablet] 40 mg PO DAILY 06/25/13 [History] Bumetanide [Bumex] 1 mg DAILY 09/13/17 [History] Gabapentin 100 mg TID 09/13/17 [History] Metformin HCl 500 mg [Glucophage 500 MG] 1,000 mg PO BID 06/25/18 [History] Lisinopril 10 mg [Zestril 10 MG] 10 mg PO DAILY 02/15/23 [History] Hx Tetanus, Diphtheria Vaccination/Date Given: Yes Hx Influenza Vaccination/Date Given: No Hx Pneumococcal Vaccination/Date Given: Yes Travel Risk - International Travel Have you traveled outside of the country in past 3 weeks: No - Coronavirus Screening Are you exhibiting any of the following symptoms?: No Close contact with a COVID-19 positive Pt in past 14-21 Days: No - Vaccine Status Have you recieved a Covid-19 vaccination: Yes 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 - Vaccination Dates Date of 2cond Vaccination (if applicable): 2020 - Review of Systems Constitutional: No Symptoms Ears, Nose, & Throat: No Symptoms Respiratory: No Symptoms Cardiac: No Symptoms Abdominal/Gastrointestinal: No Symptoms Genitourinary Symptoms: No Symptoms Skin: Cellulitis, Rash, Skin Lesions, Dryness - Past Medical History Pertinent Past Medical History: Yes Neurological History: Peripheral Neuropathy, TIA ENT History: No Pertinent History Cardiac History: High Cholesterol, Hypertension, Other Respiratory History: Emphysema, Sleep Apnea Endocrine Medical History: No Pertinent History Musculoskeletal History: No Pertinent History GI Medical History: GERD History: No Pertinent History Psycho-Social History: Depression Male Reproductive Disorders: No Pertinent History Other Medical History: Hx: DVT right leg - Past Surgical History Past Surgical History: Yes Neuro Surgical History: No Pertinent History Cardiac: Cardiac Catheterization Respiratory: No Pertinent History Gastrointestinal: Hernia Repair Genitourinary: No Pertinent History Musculoskeletal: No Pertinent History Male Surgical History: No Pertinent History - Social History Smoking Status: Current every day smoker How long have you smoked: 10 Exposure to second hand smoke: Yes Drug Use: none Patient Lives Alone: No - Nursing Vital Signs Nursing Vital Signs: Initial Vital Signs Temperature 98.6 F 02/15/23 15:07 Pulse Rate 74 02/15/23 15:07 Respiratory Rate 20 02/15/23 15:07 Blood Pressure 127/75 02/15/23 15:07 O2 Sat by Pulse Oximetry 97 02/15/23 15:07 Pain Scale Pain Intensity 5 - Physical Exam General Appearance: moderate distress Eye Exam: eyes nml inspection Ears, Nose, Throat Exam: normal ENT inspection Neck Exam: normal inspection, non-tender, supple, full range of motion Respiratory Exam: normal breath sounds, lungs clear Cardiovascular Exam: regular rate/rhythm, normal heart sounds, capillary refill <2 sec Gastrointestinal/Abdomen Exam: soft, No tenderness Extremity Exam: tenderness Neurologic Exam: alert, oriented x 3, cooperative Skin Exam: rash SpO2 Interpretation: normal SpO2: 99 O2 Delivery: Room Air - Course Nursing assessment & vital signs reviewed: Yes Ordered Tests: Active Orders 24 hr Category Date Time Status Code Status Order ROUTINE Care 02/15/23 20:32 Active IV Care Q6H Care 02/15/23 20:32 Active IV Insertion STAT Care 02/15/23 17:[address] in Observation ROUTINE Care 02/15/23 20:32 Active House Regular Diet Diet 02/15/23 Dinner Active BLOOD CULTURE Stat Lab 02/15/23 17:50 Received BMP AM.LAB Lab 02/16/23 04:00 Ordered CBC W DIFF AM.LAB Lab 02/16/23 04:00 Ordered CBC W DIFF Stat Lab 02/15/23 17:45 Completed CMP Stat Lab 02/15/23 17:45 Completed ESR [Erythrocyte Sedimentation Rate] Stat Lab 02/15/23 20:00 Completed Lactic Acid Stat Lab 02/15/23 17:50 Completed Medication Summary Generic Name Dose Route Start Last Admin Trade Name Freq PRN Reason Stop Dose Admin Methylprednisolone Sodium 0 mg 02/15/23 20:32 02/15/23 23:00 Succinate 60 mg/ Sterile Water IV 03/17/23 20:31 60 mg 2 ml Q6HT CHELSY Administration Duloxetine HCl 180 mg 02/15/23 22:30 02/15/23 22:59 Duloxetine Hcl 30 Mg Cap PO 03/17/23 22:29 180 mg HS CHELSY Administration Gabapentin 100 mg 02/15/23 23:00 02/15/23 22:59 Gabapentin 100 Mg Capsule PO 03/17/23 22:59 100 mg TID CHELSY Administration Sodium Chloride 1,000 mls @ 100 mls/hr 02/15/23 20:32 02/15/23 23:00 Sodium Chloride 0.9% 1000 Ml IV 03/17/23 20:31 100 mls/hr .Q10H CHELSY Administration Piperacillin Sod/Tazobactam 100 mls @ 200 mls/hr 02/15/23 20:32 02/16/23 00:21 Sod 3.375 gm/ Sodium Chloride IV 02/18/23 20:31 200 mls/hr Q6HT CHELSY Administration Vancomycin HCl 1 gm/ Sodium 250 mls @ 125 mls/hr 02/15/23 20:32 Chloride IV 03/17/23 20:31 Q12H CHELSY Metformin HCl 1,000 mg 02/15/23 23:00 02/15/23 22:59 Metformin Hcl 500 Mg Tablet PO 03/17/23 22:59 1,000 mg BIDWM CHELSY Administration Morphine Sulfate 2 mg 02/15/23 20:32 Morphine Sulfate 2 Mg/Ml Inj IV 02/20/23 20:31 Q4H PRN PRN PAIN Oxycodone/Acetaminophen 1 tab 02/15/23 22:05 02/15/23 22:59 Oxycodone / Apap 10/325 Mg 1 Tablet PO 02/20/23 22:04 1 tab Q4H PRN PRN Administration PAIN Discontinued Medications Generic Name Dose Route Start Last Admin Trade Name Freq PRN Reason Stop Dose Admin Piperacillin Sod/Tazobactam 100 mls @ 200 mls/hr 02/15/23 17:30 02/15/23 17:58 Sod 3.375 gm/ Sodium Chloride IV 02/15/23 17:59 200 mls/hr STAT ONE Administration Vancomycin HCl 2 gm in 400 mls @ 133.333 mls/hr 02/15/23 17:30 02/15/23 19:07 Vancomycin 2 Gram/400 Ml Bag IV 02/15/23 20:29 133.333 mls/hr STAT ONE 133.33 mls/hr Administration Sodium Chloride 1,000 mls @ 999 mls/hr 02/15/23 17:29 02/15/23 19:07 Sodium Chloride 0.9% 1000 Ml IV 02/15/23 18:29 Infused .Q1H1M STA Infusion Sodium Chloride Confirm 02/15/23 17:51 Sodium Chloride 100ml Mini-Bag Plus Administered 02/15/23 17:52 Dose 100 mls @ ud IV .STK-MED ONE Sodium Chloride Confirm 02/15/23 17:51 Sodium Chloride 0.9% 1000 Ml Administered 02/15/23 17:52 Dose 1,000 mls @ ud .ROUTE .STK-MED ONE Vancomycin HCl Confirm 02/15/23 19:05 Vancomycin 2 Gram/400 Ml Bag Administered 02/15/23 19:06 Dose 2 gm in 400 mls @ ud IV .STK-MED ONE Sodium Chloride Confirm 02/16/23 00:20 Sodium Chloride 100ml Mini-Bag Plus Administered 02/16/23 00:21 Dose 100 mls @ ud IV .STK-MED ONE Methylprednisolone Sodium Succinate Confirm 02/15/23 22:50 Methylprednis Sod Succ 125 Mg/2 Ml Vial Administered 02/15/23 22:51 Dose 125 mg .ROUTE .STK-MED ONE Morphine Sulfate 2 mg 02/15/23 17:29 02/15/23 17:57 Morphine Sulfate 2 Mg/Ml Inj IV 02/15/23 17:30 2 mg STAT ONE Administration Morphine Sulfate Confirm 02/15/23 17:49 Morphine Sulfate 2 Mg/Ml Inj Administered 02/15/23 17:50 Dose 2 mg .ROUTE .STK-MED ONE Piperacillin Sod/Tazobactam Sod Confirm 02/15/23 17:49 Piperacillin/Tazobactam Sodium 3.375 Gm Vial Administered 02/15/23 17:50 Dose 3.375 gm IV .STK-MED ONE Piperacillin Sod/Tazobactam Sod Confirm 02/16/23 00:17 Piperacillin/Tazobactam Sodium 3.375 Gm Vial Administered 02/16/23 00:18 Dose 3.375 gm IV .STK-MED ONE Sterile Water Confirm 02/15/23 22:52 Water For Injection,Sterile 10 Ml Vial Administered 02/15/23 22:53 Dose 10 ml IJ .STK-MED ONE Lab/Rad Data: Laboratory Result Diagrams 02/15/23 17:45 02/15/23 17:45 Laboratory Results 02/15/23 02/15/23 02/15/23 Range/Units 20:00 18:10 17:50 WBC (4.0-10.5) x10^3/uL RBC (4.1-5.6) x10^6/uL Hgb (12.5-18.0) g/dL Hct (42-50) % MCV (78-100) fL MCH (26-32) pg MCHC (32-36) g/dL RDW (11.5-14.0) % Plt Count (150-450) x10^3/uL MPV (7.5-11.0) fL Gran % (36.0-66.0) % Immature Gran % (Auto) (0.00-0.4) % Nucleat RBC Rel Count (0.00-0.1) % Eos # (Auto) (0-0.5) x10^3/uL Immature Gran # (Auto) (0.00-0.03) x10^3u/L Absolute Lymphs (auto) (1.0-4.6) x10^3/uL Absolute Monos (auto) (0.0-1.3) x10^3/uL Absolute Nucleated RBC (0.00-0.01) x10^3u/L Lymphocytes % (24.0-44.0) % Monocytes % (0.0-12.0) % Eosinophils % (0.00-5.0) % Basophils % (0.0-0.4) % Absolute Granulocytes (1.4-6.9) x10^3/uL Basophils # (0-0.4) x10^3/uL ESR 49 H (0-15) mm/hr Sodium (137-145) mmol/L Potassium (3.5-5.1) mmol/L Chloride (98-107) mmol/L Carbon Dioxide (22-30) mmol/L Anion Gap (5-15) MEQ/L BUN (9-20) mg/dL Creatinine (0.66-1.25) mg/dL Estimated GFR ML/MIN Glucose (74-106) mg/dL Lactic Acid 0.8 (0.4-2.0) Calcium (8.4-10.2) mg/dL Total Bilirubin (0.2-1.3) mg/dL AST (17-59) U/L ALT (0-50) U/L Alkaline Phosphatase (38-126) U/L Serum Total Protein (6.3-8.2) g/dL Albumin (3.5-5.0) g/dL Influenza Type A Ag NEGATIVE (NEGATIVE) Influenza Type B Ag NEGATIVE (NEGATIVE) RSV (PCR) NEGATIVE (NEGATIVE) SARS-CoV-2 (PCR) NEGATIVE (NEGATIVE) 02/15/23 02/15/23 Range/Units 17:45 17:45 WBC 7.6 (4.0-10.5) x10^3/uL RBC 4.40 (4.1-5.6) x10^6/uL Hgb 12.7 (12.5-18.0) g/dL Hct 37.8 L (42-50) % MCV 85.9 (78-100) fL MCH 28.9 (26-32) pg MCHC 33.6 (32-36) g/dL RDW 13.2 (11.5-14.0) % Plt Count 330 (150-450) x10^3/uL MPV 10.6 (7.5-11.0) fL Gran % 52.2 (36.0-66.0) % Immature Gran % (Auto) 0.3 (0.00-0.4) % Nucleat RBC Rel Count 0.0 (0.00-0.1) % Eos # (Auto) 0.24 (0-0.5) x10^3/uL Immature Gran # (Auto) 0.02 (0.00-0.03) x10^3u/L Absolute Lymphs (auto) 2.69 (1.0-4.6) x10^3/uL Absolute Monos (auto) 0.65 (0.0-1.3) x10^3/uL Absolute Nucleated RBC 0.00 (0.00-0.01) x10^3u/L Lymphocytes % 35.3 (24.0-44.0) % Monocytes % 8.5 (0.0-12.0) % Eosinophils % 3.2 (0.00-5.0) % Basophils % 0.5 (0.0-0.4) % Absolute Granulocytes 3.97 (1.4-6.9) x10^3/uL Basophils # 0.04 (0-0.4) x10^3/uL ESR (0-15) mm/hr Sodium 142 (137-145) mmol/L Potassium 3.7 (3.5-5.1) mmol/L Chloride 107 (98-107) mmol/L Carbon Dioxide 24 (22-30) mmol/L Anion Gap 15.4 H (5-15) MEQ/L BUN 20 (9-20) mg/dL Creatinine 0.85 (0.66-1.25) mg/dL Estimated GFR > 60.0 ML/MIN Glucose 89 (74-106) mg/dL Lactic Acid (0.4-2.0) Calcium 9.7 (8.4-10.2) mg/dL Total Bilirubin 0.30 (0.2-1.3) mg/dL AST 22 (17-59) U/L ALT 23 (0-50) U/L Alkaline Phosphatase 60 (38-126) U/L Serum Total Protein 8.5 H (6.3-8.2) g/dL Albumin 4.4 (3.5-5.0) g/dL Influenza Type A Ag (NEGATIVE) Influenza Type B Ag (NEGATIVE) RSV (PCR) (NEGATIVE) SARS-CoV-2 (PCR) (NEGATIVE) - Progress Progress: improved Progress Note: Patient started on Vanc/Zosyn. No active drainage to culture on exam. Pain improved w/ IV anelgesia and abx. Discussed case w/ Dr. Watkins who agrees to admit the patient for observation. 02/16/23 03:[address]Philip: Jeremiah Will see patient in: hospital (observation) Counseled pt/family regarding: lab results, diagnosis Medical Desision Making - Discussion of managment Care discussed with:: on-call "doc" Agreed on:: Treatment plan - Diagnostic Testing Diagnostic test were ordered, analyzed, and reviewed by me: Yes Radiological Interpretation: Reviewed by me - Risk of complications The pt has a high risk of morbidity or mortality based on: Decision regarding hospitilization or escalation of hosp level of care - Departure Departure Disposition: Observation Clinical Impression: Cellulitis, Psoriasis, DMII (diabetes mellitus, type 2), Intractable pain Condition: Stable Critical Care Time: No
[2023-02-15] MEDS ORDERED: MORPHINE SULFATE 2 MG INJ IV ONE (17:29)
[2023-02-15] MEDS ORDERED: Sodium Chloride 0.9% 1000 ML 1,000 ML IV STA (17:29)
[2023-02-15] MEDS ORDERED: VANCOMYCIN 2 GRAM/400 ML BAG 2 GM/400 ML PIGGYBACK IV ONE ×2 (17:30→19:05)
[2023-02-15] MEDS ORDERED: PIPERACILLIN/TAZOBACTAM 3.375 GM in Sodium Chloride 100ML MINI-BAG PLUS 100 ML IV ONE (17:30)
[2023-02-15] MEDS ORDERED: PIPERACILLIN/TAZOBACTAM IV ONE (17:49)
[2023-02-15] MEDS ORDERED: MORPHINE SULFATE 2 MG INJ ONE (17:49)
[2023-02-15] MEDS ORDERED: Sodium Chloride 0.9% 1000 ML 1,000 ML ONE (17:51)
[2023-02-15] MEDS ORDERED: Sodium Chloride 100ML MINI-BAG PLUS 100 ML IV ONE (17:51)
[2023-02-15 17:59] LABS: Absolute Neutrophil Ct (ANC) 3.97 x10^3/uL (1.4-6.9); BASOPHIL % 0.5 % (0.0-0.4); Basophil (Absolute #) 0.04 x10^3/uL (0-0.4); Eosinophil % 3.2 % (0.00-5.0); Eosinophil (Absolute #) 0.24 x10^3/uL (0-0.5); Hematocrit 37.8 % (42-50); Hemoglobin 12.7 g/dL (12.5-18.0); IMMATURE GRAN # 0.02 x10^3u/L (0.00-0.03); IMMATURE GRAN % 0.3 % (0.00-0.4); Lymphocyte (Absolute #) 2.69 x10^3/uL (1.0-4.6); Lymphocytes % 35.3 % (24.0-44.0); Mean Cell Volume 85.9 fL (78-100); Mean Corpuscular Hemoglobin 28.9 pg (26-32); Mean Corpuscular Hgb Concent. 33.6 g/dL (32-36); Mean Platelet Volume 10.6 fL (7.5-11.0); Monocyte (Absolute #) 0.65 x10^3/uL (0.0-1.3); Monocytes % 8.5 % (0.0-12.0); Neutrophil % 52.2 % (36.0-66.0); Platelet Count 330 x10^3/uL (150-450); Red Cell Distribution Width 13.2 % (11.5-14.0); White Blood Count 7.6 x10^3/uL (4.0-10.5)
[2023-02-15 18:12] LABS: ALBUMIN 4.4 g/dL (3.5-5.0); ALKALINE PHOSPHATASE 60 U/L (38-126); ANION GAP 15.4 MEQ/L (5-15); BLOOD UREA NITROGEN 20 mg/dL (9-20); CHLORIDE 107 mmol/L (98-107); Calcium 9.7 mg/dL (8.4-10.2); Carbon Dioxide 24 mmol/L (22-30); Creatinine 1 0.85 mg/dL (0.66-1.25); EST GLOMERULAR FILTRATION RATE > 60.0 ML/MIN; Glucose 89 mg/dL (74-106); Potassium 3.7 mmol/L (3.5-5.1); SGOT/AST 22 U/L (17-59); SGPT/ALT 23 U/L (0-50); SODIUM 142 mmol/L (137-145); Total Protein 8.5 g/dL (6.3-8.2)
[2023-02-15 18:48] LABS: INFLUENZA A NEGATIVE (NEGATIVE); INFLUENZA B NEGATIVE (NEGATIVE); RESPIRATORY SYNCTIAL VIRUS NEGATIVE (NEGATIVE); SARS-CoV-2 Xpert Express NEGATIVE (NEGATIVE)
[2023-02-15] MEDS ORDERED: VANCOCIN INJECTION*** 1 GM in Sodium Chloride 0.9% 250 ML 250 ML IV SCH (20:32)
[2023-02-15] MEDS ORDERED: solu-MEDROL ONE (22:50)
[2023-02-15] MEDS ORDERED: Sterile H2O 10 ml IJ ONE (22:52)
[2023-02-15] MEDS: Neurontin PO SCH (22:59)
[2023-02-15] MEDS: OXYCODONE-ACETAMINOPHEN 10-325 PO PRN (22:59)
[2023-02-15] MEDS: Cymbalta 30 MG Capsule PO SCH (22:59)
[2023-02-15] MEDS: Glucophage 500 MG PO SCH (22:59)
[2023-02-15] MEDS: solu-MEDROL 60 MG, Sterile H2O 10 ml 2 ML IV SCH ×2 (23:00)
[2023-02-15] MEDS: Sodium Chloride 0.9% 1000 ML 1,000 ML IV SCH (23:00)
[2023-02-16] MEDS ORDERED: PIPERACILLIN/TAZOBACTAM IV ONE ×2 (00:17→05:25)
[2023-02-16] MEDS ORDERED: Sodium Chloride 100ML MINI-BAG PLUS 100 ML IV ONE ×2 (00:20→05:26)
[2023-02-16] MEDS: PIPERACILLIN/TAZOBACTAM 3.375 GM in Sodium Chloride 100ML MINI-BAG PLUS 100 ML IV SCH ×6 (00:21→23:25)
[2023-02-16] MEDS ORDERED: solu-MEDROL ONE (05:25)
[2023-02-16] MEDS ORDERED: Sterile H2O 10 ml IJ ONE (05:25)
[2023-02-16] MEDS: solu-MEDROL 60 MG, Sterile H2O 10 ml 2 ML IV SCH ×10 (05:28→23:25)
[2023-02-16 06:51] LABS: Absolute Neutrophil Ct (ANC) 6.07 x10^3/uL (1.4-6.9); BASOPHIL % 0.3 % (0.0-0.4); Basophil (Absolute #) 0.02 x10^3/uL (0-0.4); Eosinophil % 0.1 % (0.00-5.0); Eosinophil (Absolute #) 0.01 x10^3/uL (0-0.5); Hematocrit 38.6 % (42-50); Hemoglobin 12.7 g/dL (12.5-18.0); IMMATURE GRAN # 0.02 x10^3u/L (0.00-0.03); IMMATURE GRAN % 0.3 % (0.00-0.4); Lymphocyte (Absolute #) 0.83 x10^3/uL (1.0-4.6); Lymphocytes % 11.8 % (24.0-44.0); Mean Cell Volume 88.1 fL (78-100); Mean Corpuscular Hgb Concent. 32.9 g/dL (32-36); Mean Platelet Volume 11.3 fL (7.5-11.0); Monocyte (Absolute #) 0.07 x10^3/uL (0.0-1.3); Neutrophil % 86.5 % (36.0-66.0); Platelet Count 320 x10^3/uL (150-450); Red Blood Count 4.38 x10^6/uL (4.1-5.6); Red Cell Distribution Width 13.6 % (11.5-14.0)
[2023-02-16 07:31] LABS: BLOOD UREA NITROGEN 19 mg/dL (9-20); CHLORIDE 110 mmol/L (98-107); Carbon Dioxide 21 mmol/L (22-30); Creatinine 1 0.86 mg/dL (0.66-1.25); EST GLOMERULAR FILTRATION RATE > 60.0 ML/MIN; Glucose 159 mg/dL (74-106); SODIUM 141 mmol/L (137-145); Uric Acid 3.3 mg/dL (3.5-7.2)
[2023-02-16 07:33] LABS: ANION GAP 14 MEQ/L (5-15)
[2023-02-16] MEDS: Glucophage 500 MG PO SCH ×2 (07:56→17:06)
[2023-02-16] MEDS ORDERED: VANCOMYCIN 1 GRAM/200 ML BAG 1 GM/200 ML PIGGYBACK IV SCH (08:45)
[2023-02-16] MEDS: VANCOMYCIN 1 GRAM/200 ML BAG 1 GM/200 ML PIGGYBACK IV SCH ×2 (09:54→21:43)
[2023-02-16] MEDS: BUMEX 1 MG PO SCH (09:55)
[2023-02-16] MEDS: ECOTRIN 81 MG PO SCH (09:55)
[2023-02-16] MEDS: Tricor 145 MG PO SCH (09:55)
[2023-02-16] MEDS: Zestril 10 MG PO SCH (09:55)
[2023-02-16] MEDS: THERAGRAN MULTIVITAMIN PO SCH (09:55)
[2023-02-16] MEDS: Neurontin PO SCH ×3 (09:55→21:43)
[2023-02-16] MEDS: ZYLOPRIM 300 MG PO SCH (09:56)
[2023-02-16] MEDS: Protonix 40MG Tablet PO SCH (09:56)
[2023-02-16] MEDS ORDERED: NON-FORMULARY ITEM (Bumetanide [Bumex] 2 MG Tablet) PO SCH (10:00)
[2023-02-16] MEDS ORDERED: Protonix 20MG Tablet PO SCH (10:00)
[2023-02-16] MEDS ORDERED: NON-FORMULARY ITEM (Multivitamin [Daily Multivitamin] 1 EACH Tablet) PO SCH (10:00)
[2023-02-16] MEDS: Diflucan 100 MG PO SCH (11:44)
[2023-02-16] MEDS: MORPHINE SULFATE 2 MG INJ IV PRN ×2 (11:47→20:36)
[2023-02-16] MEDS: Sodium Chloride 0.9% 1000 ML 1,000 ML IV SCH (11:51)
[2023-02-16] MEDS ORDERED: HUMALOG SQ PRN (16:59)
--- NOTE | 2023-02-16 17:11 | PCM.HP ---
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 States thick scaley all over feet and skin cracks when he walks and then the cracks bleed . Patient was referred to Podiatry and his appt is next week. Medications & Allergies Home Medications: Home Medication List Allopurinol 300 mg [Zyloprim 300 mg] 300 mg PO DAILY 06/25/13 [History Confirmed 02/15/23] Duloxetine HCl 30 mg [Cymbalta 30 MG Capsule] 180 mg PO HS 06/25/13 [History Confirmed 02/15/23] Multivitamin [Daily Multivitamin] 1 each PO DAILY 06/25/13 [History Confirmed 02/15/23] Pantoprazole 20 mg [Protonix 20MG Tablet] 40 mg PO DAILY 06/25/13 [History Confirmed 02/15/23] Aspirin EC 81 mg [Ecotrin 81 mg] 81 mg PO DAILY #0 tablet.ec 06/26/13 [Rx Confirmed 02/15/23] Fenofibrate,Micronized 145 mg* [Tricor 145 MG] 145 mg PO DAILY #30 tablet 06/26/13 [Rx Confirmed 02/15/23] Bumetanide [Bumex] 1 mg DAILY 09/13/17 [History Confirmed 02/15/23] Gabapentin 100 mg TID 09/13/17 [History Confirmed 02/15/23] Metformin HCl 500 mg [Glucophage 500 MG] 1,000 mg PO BID 06/25/18 [History Confirmed 02/15/23] Lisinopril 10 mg [Zestril 10 MG] 10 mg PO DAILY 02/15/23 [History Confirmed 02/15/23] Allergies/Adverse Reactions: Allergies Allergy/AdvReac Type Severity Reaction Status Date / Time No Known Drug Allergies Allergy Verified 02/15/23 20:53 - Past Medical History Past Medical History: Yes Neurological History: Peripheral Neuropathy, TIA ENT History: No Pertinent History Cardiac History: High Cholesterol, Hypertension, Other Respiratory History: Emphysema, Sleep Apnea Endocrine Medical History: No Pertinent History Musculoskelatal History: No Pertinent History GI Medical History: GERD History: No Pertinent History Pyscho-Social History: Depression Male Reproductive Disorders: No Pertinent History Comment: Hx: DVT right leg - Past Surgical History Past Surgical History: Yes Neuro Surgical History: No Pertinent History Cardiac History: Cardiac Catheterization Respiratory Surgery: No Pertinent History GI Surgical History: Hernia Repair Genitourinary Surgical Hx: No Pertinent History Musculskeletal Surgical Hx: No Pertinent History Male Surgical History: No Pertinent History - Social History Smoking Status: Current every day smoker How long have you smoked: 10 Exposure to second hand smoke: Yes Alcohol: Occasionally Drug Use: none - Physical Exam Vital Signs: Vital Signs - 24 hr Temp Pulse Resp BP BP Pulse Ox 02/16/23 16:00 98.0 F 87 17 120/60 95 02/16/23 11:59 98.2 F 81 17 146/67 95 02/16/23 07:28 97.3 F 75 18 148/73 97 02/16/23 07:03 95 02/16/23 04:00 97 F 70 19 131/69 96 02/16/23 03:13 99 02/15/23 23:59 97.5 F 69 18 104/56 96 02/15/23 22:50 95 02/15/23 21:24 97.5 F 66 20 144/68 95 02/15/23 20:05 70 20 133/80 98 02/15/23 19:16 62 20 124/73 97 02/15/23 18:23 61 18 122/78 98 Wound Assessment: Skin/Wound Assessment Wound/Incision Assessment Start: 02/15/23 20:00 Text: Status: Active Freq: Q6H Protocol: Document 02/16/23 14:00 RB (Rec: 02/16/23 15:25 RB [id number]) Wound Photo Photo Taken Yes Comment: TAKEN BY DEVI ALEXANDRA. Results - Labs Lab/Micro Results: Lab Results-Last 24 Hours 02/15/23 02/15/23 02/15/23 Range/Units 17:45 17:45 17:50 WBC 7.6 (4.0-10.5) x10^3/uL RBC 4.40 (4.1-5.6) x10^6/uL Hgb 12.7 (12.5-18.0) g/dL Hct 37.8 L (42-50) % MCV 85.9 (78-100) fL MCH 28.9 (26-32) pg MCHC 33.6 (32-36) g/dL RDW 13.2 (11.5-14.0) % Plt Count 330 (150-450) x10^3/uL MPV 10.6 (7.5-11.0) fL Gran % 52.2 (36.0-66.0) % Immature Gran % (Auto) 0.3 (0.00-0.4) % Nucleat RBC Rel Count 0.0 (0.00-0.1) % Eos # (Auto) 0.24 (0-0.5) x10^3/uL Immature Gran # (Auto) 0.02 (0.00-0.03) x10^3u/L Absolute Lymphs (auto) 2.69 (1.0-4.6) x10^3/uL Absolute Monos (auto) 0.65 (0.0-1.3) x10^3/uL Absolute Nucleated RBC 0.00 (0.00-0.01) x10^3u/L Lymphocytes % 35.3 (24.0-44.0) % Monocytes % 8.5 (0.0-12.0) % Eosinophils % 3.2 (0.00-5.0) % Basophils % 0.5 (0.0-0.4) % Absolute Granulocytes 3.97 (1.4-6.9) x10^3/uL Basophils # 0.04 (0-0.4) x10^3/uL ESR (0-15) mm/hr Sodium 142 (137-145) mmol/L Potassium 3.7 (3.5-5.1) mmol/L Chloride 107 (98-107) mmol/L Carbon Dioxide 24 (22-30) mmol/L Anion Gap 15.4 H (5-15) MEQ/L BUN 20 (9-20) mg/dL Creatinine 0.85 (0.66-1.25) mg/dL Estimated GFR > 60.0 ML/MIN Glucose 89 (74-106) mg/dL POC Glucometer (74 to 106) mg/dL Hemoglobin A1c (4.5-6.0) % Lactic Acid 0.8 (0.4-2.0) Uric Acid (3.5-7.2) mg/dL Calcium 9.7 (8.4-10.2) mg/dL Total Bilirubin 0.30 (0.2-1.3) mg/dL AST 22 (17-59) U/L ALT 23 (0-50) U/L Alkaline Phosphatase 60 (38-126) U/L Serum Total Protein 8.5 H (6.3-8.2) g/dL Albumin 4.4 (3.5-5.0) g/dL TSH 3rd Generation (0.47-4.68) mIU/L Influenza Type A Ag (NEGATIVE) Influenza Type B Ag (NEGATIVE) RSV (PCR) (NEGATIVE) SARS-CoV-2 (PCR) (NEGATIVE) 02/15/23 02/15/23 02/15/23 Range/Units 18:10 20:00 22:45 WBC (4.0-10.5) x10^3/uL RBC (4.1-5.6) x10^6/uL Hgb (12.5-18.0) g/dL Hct (42-50) % MCV (78-100) fL MCH (26-32) pg MCHC (32-36) g/dL RDW (11.5-14.0) % Plt Count (150-450) x10^3/uL MPV (7.5-11.0) fL Gran % (36.0-66.0) % Immature Gran % (Auto) (0.00-0.4) % Nucleat RBC Rel Count (0.00-0.1) % Eos # (Auto) (0-0.5) x10^3/uL Immature Gran # (Auto) (0.00-0.03) x10^3u/L Absolute Lymphs (auto) (1.0-4.6) x10^3/uL Absolute Monos (auto) (0.0-1.3) x10^3/uL Absolute Nucleated RBC (0.00-0.01) x10^3u/L Lymphocytes % (24.0-44.0) % Monocytes % (0.0-12.0) % Eosinophils % (0.00-5.0) % Basophils % (0.0-0.4) % Absolute Granulocytes (1.4-6.9) x10^3/uL Basophils # (0-0.4) x10^3/uL ESR 49 H (0-15) mm/hr Sodium (137-145) mmol/L Potassium (3.5-5.1) mmol/L Chloride (98-107) mmol/L Carbon Dioxide (22-30) mmol/L Anion Gap (5-15) MEQ/L BUN (9-20) mg/dL Creatinine (0.66-1.25) mg/dL Estimated GFR ML/MIN Glucose (74-106) mg/dL POC Glucometer 115 H (74 to 106) mg/dL Hemoglobin A1c (4.5-6.0) % Lactic Acid (0.4-2.0) Uric Acid (3.5-7.2) mg/dL Calcium (8.4-10.2) mg/dL Total Bilirubin (0.2-1.3) mg/dL AST (17-59) U/L ALT (0-50) U/L Alkaline Phosphatase (38-126) U/L Serum Total Protein (6.3-8.2) g/dL Albumin (3.5-5.0) g/dL TSH 3rd Generation (0.47-4.68) mIU/L Influenza Type A Ag NEGATIVE (NEGATIVE) Influenza Type B Ag NEGATIVE (NEGATIVE) RSV (PCR) NEGATIVE (NEGATIVE) SARS-CoV-2 (PCR) NEGATIVE (NEGATIVE) 02/16/23 02/16/23 02/16/23 Range/Units 05:30 05:30 05:30 WBC 7.0 (4.0-10.5) x10^3/uL RBC 4.38 (4.1-5.6) x10^6/uL Hgb 12.7 (12.5-18.0) g/dL Hct 38.6 L (42-50) % MCV 88.1 (78-100) fL MCH 29.0 (26-32) pg MCHC 32.9 (32-36) g/dL RDW 13.6 (11.5-14.0) % Plt Count 320 (150-450) x10^3/uL MPV 11.3 H (7.5-11.0) fL Gran % 86.5 H (36.0-66.0) % Immature Gran % (Auto) 0.3 (0.00-0.4) % Nucleat RBC Rel Count 0.0 (0.00-0.1) % Eos # (Auto) 0.01 (0-0.5) x10^3/uL Immature Gran # (Auto) 0.02 (0.00-0.03) x10^3u/L Absolute Lymphs (auto) 0.83 L (1.0-4.6) x10^3/uL Absolute Monos (auto) 0.07 (0.0-1.3) x10^3/uL Absolute Nucleated RBC 0.00 (0.00-0.01) x10^3u/L Lymphocytes % 11.8 L (24.0-44.0) % Monocytes % 1.0 (0.0-12.0) % Eosinophils % 0.1 (0.00-5.0) % Basophils % 0.3 (0.0-0.4) % Absolute Granulocytes 6.07 (1.4-6.9) x10^3/uL Basophils # 0.02 (0-0.4) x10^3/uL ESR (0-15) mm/hr Sodium 141 (137-145) mmol/L Potassium 4.0 (3.5-5.1) mmol/L Chloride 110 H (98-107) mmol/L Carbon Dioxide 21 L (22-30) mmol/L Anion Gap 14 (5-15) MEQ/L BUN 19 (9-20) mg/dL Creatinine 0.86 (0.66-1.25) mg/dL Estimated GFR > 60.0 ML/MIN Glucose 159 H (74-106) mg/dL POC Glucometer (74 to 106) mg/dL Hemoglobin A1c 5.16 (4.5-6.0) % Lactic Acid (0.4-2.0) Uric Acid 3.3 L (3.5-7.2) mg/dL Calcium 9.0 (8.4-10.2) mg/dL Total Bilirubin (0.2-1.3) mg/dL AST (17-59) U/L ALT (0-50) U/L Alkaline Phosphatase (38-126) U/L Serum Total Protein (6.3-8.2) g/dL Albumin (3.5-5.0) g/dL TSH 3rd Generation 1.470 (0.47-4.68) mIU/L Influenza Type A Ag (NEGATIVE) Influenza Type B Ag (NEGATIVE) RSV (PCR) (NEGATIVE) SARS-CoV-2 (PCR) (NEGATIVE) 02/16/23 02/16/23 02/16/23 Range/Units 06:44 11:35 16:06 WBC (4.0-10.5) x10^3/uL RBC (4.1-5.6) x10^6/uL Hgb (12.5-18.0) g/dL Hct (42-50) % MCV (78-100) fL MCH (26-32) pg MCHC (32-36) g/dL RDW (11.5-14.0) % Plt Count (150-450) x10^3/uL MPV (7.5-11.0) fL Gran % (36.0-66.0) % Immature Gran % (Auto) (0.00-0.4) % Nucleat RBC Rel Count (0.00-0.1) % Eos # (Auto) (0-0.5) x10^3/uL Immature Gran # (Auto) (0.00-0.03) x10^3u/L Absolute Lymphs (auto) (1.0-4.6) x10^3/uL Absolute Monos (auto) (0.0-1.3) x10^3/uL Absolute Nucleated RBC (0.00-0.01) x10^3u/L Lymphocytes % (24.0-44.0) % Monocytes % (0.0-12.0) % Eosinophils % (0.00-5.0) % Basophils % (0.0-0.4) % Absolute Granulocytes (1.4-6.9) x10^3/uL Basophils # (0-0.4) x10^3/uL ESR (0-15) mm/hr Sodium (137-145) mmol/L Potassium (3.5-5.1) mmol/L Chloride (98-107) mmol/L Carbon Dioxide (22-30) mmol/L Anion Gap (5-15) MEQ/L BUN (9-20) mg/dL Creatinine (0.66-1.25) mg/dL Estimated GFR ML/MIN Glucose (74-106) mg/dL POC Glucometer 134 H 170 H 195 H (74 to 106) mg/dL Hemoglobin A1c (4.5-6.0) % Lactic Acid (0.4-2.0) Uric Acid (3.5-7.2) mg/dL Calcium (8.4-10.2) mg/dL Total Bilirubin (0.2-1.3) mg/dL AST (17-59) U/L ALT (0-50) U/L Alkaline Phosphatase (38-126) U/L Serum Total Protein (6.3-8.2) g/dL Albumin (3.5-5.0) g/dL TSH 3rd Generation (0.47-4.68) mIU/L Influenza Type A Ag (NEGATIVE) Influenza Type B Ag (NEGATIVE) RSV (PCR) (NEGATIVE) SARS-CoV-2 (PCR) (NEGATIVE) Microbiology 02/15/23 17:45 Blood Culture - Preliminary Blood NO GROWTH TO DATE - Other Procedures and Tests Respiratory Therapy 02/15/23 23:31 BiPap/CPAP ROUTINE Oxygen Nasal Cannula 2 lpm
[2023-02-16] MEDS: Cymbalta 30 MG Capsule PO SCH (21:43)
[2023-02-16] MEDS: OXYCODONE-ACETAMINOPHEN 10-325 PO PRN (21:43)
[2023-02-17 05:07] LABS: BASOPHIL % 0.1 % (0.0-0.4); Basophil (Absolute #) 0.02 x10^3/uL (0-0.4); Eosinophil (Absolute #) 0 x10^3/uL (0-0.5); Hemoglobin 11.7 g/dL (12.5-18.0); IMMATURE GRAN # 0.08 x10^3u/L (0.00-0.03); IMMATURE GRAN % 0.5 % (0.00-0.4); Lymphocyte (Absolute #) 1.38 x10^3/uL (1.0-4.6); Lymphocytes % 7.8 % (24.0-44.0); Mean Cell Volume 86.8 fL (78-100); Mean Corpuscular Hgb Concent. 33.4 g/dL (32-36); Mean Platelet Volume 11.1 fL (7.5-11.0); Monocyte (Absolute #) 0.25 x10^3/uL (0.0-1.3); Monocytes % 1.4 % (0.0-12.0); Neutrophil % 90.2 % (36.0-66.0); Platelet Count 293 x10^3/uL (150-450); Red Blood Count 4.03 x10^6/uL (4.1-5.6); Red Cell Distribution Width 13.5 % (11.5-14.0); White Blood Count 17.7 x10^3/uL (4.0-10.5)
[2023-02-17] MEDS: PIPERACILLIN/TAZOBACTAM 3.375 GM in Sodium Chloride 100ML MINI-BAG PLUS 100 ML IV SCH ×3 (05:21→17:13)
[2023-02-17] MEDS: solu-MEDROL 60 MG, Sterile H2O 10 ml 2 ML IV SCH ×6 (05:21→17:50)
[2023-02-17 06:20] LABS: ALBUMIN 3.7 g/dL (3.5-5.0); ALKALINE PHOSPHATASE 50 U/L (38-126); ANION GAP 10.4 MEQ/L (5-15); BLOOD UREA NITROGEN 20 mg/dL (9-20); CHLORIDE 108 mmol/L (98-107); Carbon Dioxide 25 mmol/L (22-30); EST GLOMERULAR FILTRATION RATE > 60.0 ML/MIN; Glucose 133 mg/dL (74-106); Potassium 3.9 mmol/L (3.5-5.1); SGOT/AST 23 U/L (17-59); SGPT/ALT 22 U/L (0-50); SODIUM 140 mmol/L (137-145); Total Protein 7.2 g/dL (6.3-8.2)
[2023-02-17] MEDS: OXYCODONE-ACETAMINOPHEN 10-325 PO PRN ×2 (08:14→19:22)
[2023-02-17] MEDS: ECOTRIN 81 MG PO SCH (08:15)
[2023-02-17] MEDS: Diflucan 100 MG PO SCH (08:15)
[2023-02-17] MEDS: Neurontin PO SCH ×3 (08:15→22:20)
[2023-02-17] MEDS: Tricor 145 MG PO SCH (08:16)
[2023-02-17] MEDS: BUMEX 1 MG PO SCH (08:16)
[2023-02-17] MEDS: THERAGRAN MULTIVITAMIN PO SCH (08:16)
[2023-02-17] MEDS: Glucophage 500 MG PO SCH ×2 (08:16→16:25)
[2023-02-17] MEDS: Protonix 40MG Tablet PO SCH (08:16)
[2023-02-17] MEDS: ZYLOPRIM 300 MG PO SCH (08:17)
[2023-02-17] MEDS: Zestril 10 MG PO SCH (08:17)
[2023-02-17] MEDS: VANCOMYCIN 1 GRAM/200 ML BAG 1 GM/200 ML PIGGYBACK IV SCH ×2 (09:22→22:20)
--- NOTE | 2023-02-17 14:11 | PCM.NOTE ---
Date and Time: 02/17/23 1410 Subjective Assessment: continues c/o foot pain with ambulation,skin cracks bleed with weight bearing,Dr Alexis will be consulting this evening Objective Exam General Appearance: no apparent distress (while resting in bed) Skin Exam: normal color, warm, dry, other (feet thick scaley mocassin pattern) Wound Assessment: Skin/Wound Assessment Wound/Incision Assessment Start: 02/15/23 20 :00 Text: Status: Active Freq: Q6H Protocol: Document 02/17/23 08:00 RB (Rec: 02/17/23 08:24 RB [id number]) Wound Photo Comment: prev taken OBJECTIVE DATA Vital Signs: Vital Signs - 24 hr Temp Pulse Resp BP Pulse Ox 02/17/23 12:00 97.7 F 69 17 131/63 93 L 02/17/23 07:27 97.3 F 77 17 137/66 95 02/17/23 06:55 94 L 02/17/23 04:00 97.9 F 80 18 128/72 95 02/17/23 00:00 97.9 F 76 17 115/58 93 L 02/16/23 20:00 98.1 F 85 16 123/60 96 02/16/23 19:10 96 02/16/23 16:00 98.0 F 87 17 120/60 95 Pain Assessment - Last Documented Pain Intensity 2 Pain Scale Used 0-10 Pain Scale Intake and Output: Intake & Output 02/15/23 02/16/23 02/17/23 02/18/23 11:59 11:59 11:59 11:59 Intake Total 1160 2963 240 Output Total 600 1225 Balance 560 1738 240 Weight 95.3 kg Lab Results: Lab Results-Last 24 Hours 02/16/23 02/16/23 02/17/23 Range/Units 16:06 20:56 04:20 WBC 17.7 H (4.0-10.5) x10^3/uL RBC 4.03 L (4.1-5.6) x10^6/uL Hgb 11.7 L (12.5-18.0) g/dL Hct 35.0 L (42-50) % MCV 86.8 (78-100) fL MCH 29.0 (26-32) pg MCHC 33.4 (32-36) g/dL RDW 13.5 (11.5-14.0) % Plt Count 293 (150-450) x10^3/uL MPV 11.1 H (7.5-11.0) fL Gran % 90.2 H (36.0-66.0) % Immature Gran % (Auto) 0.5 H (0.00-0.4) % Nucleat RBC Rel Count 0.0 (0.00-0.1) % Eos # (Auto) 0 (0-0.5) x10^3/uL Immature Gran # (Auto) 0.08 H (0.00-0.03) x10^3u/L Absolute Lymphs (auto) 1.38 (1.0-4.6) x10^3/uL Absolute Monos (auto) 0.25 (0.0-1.3) x10^3/uL Absolute Nucleated RBC 0.00 (0.00-0.01) x10^3u/L Lymphocytes % 7.8 L (24.0-44.0) % Monocytes % 1.4 (0.0-12.0) % Eosinophils % 0.0 (0.00-5.0) % Basophils % 0.1 (0.0-0.4) % Absolute Granulocytes 16.00 H (1.4-6.9) x10^3/uL Basophils # 0.02 (0-0.4) x10^3/uL Sodium (137-145) mmol/L Potassium (3.5-5.1) mmol/L Chloride (98-107) mmol/L Carbon Dioxide (22-30) mmol/L Anion Gap (5-15) MEQ/L BUN (9-20) mg/dL Creatinine (0.66-1.25) mg/dL Estimated GFR ML/MIN Glucose (74-106) mg/dL POC Glucometer 195 H 164 H (74 to 106) mg/dL Calcium (8.4-10.2) mg/dL Total Bilirubin (0.2-1.3) mg/dL AST (17-59) U/L ALT (0-50) U/L Alkaline Phosphatase (38-126) U/L Serum Total Protein (6.3-8.2) g/dL Albumin (3.5-5.0) g/dL 02/17/23 02/17/23 02/17/23 Range/Units 04:20 07:15 11:29 WBC (4.0-10.5) x10^3/uL RBC (4.1-5.6) x10^6/uL Hgb (12.5-18.0) g/dL Hct (42-50) % MCV (78-100) fL MCH (26-32) pg MCHC (32-36) g/dL RDW (11.5-14.0) % Plt Count (150-450) x10^3/uL MPV (7.5-11.0) fL Gran % (36.0-66.0) % Immature Gran % (Auto) (0.00-0.4) % Nucleat RBC Rel Count (0.00-0.1) % Eos # (Auto) (0-0.5) x10^3/uL Immature Gran # (Auto) (0.00-0.03) x10^3u/L Absolute Lymphs (auto) (1.0-4.6) x10^3/uL Absolute Monos (auto) (0.0-1.3) x10^3/uL Absolute Nucleated RBC (0.00-0.01) x10^3u/L Lymphocytes % (24.0-44.0) % Monocytes % (0.0-12.0) % Eosinophils % (0.00-5.0) % Basophils % (0.0-0.4) % Absolute Granulocytes (1.4-6.9) x10^3/uL Basophils # (0-0.4) x10^3/uL Sodium 140 (137-145) mmol/L Potassium 3.9 (3.5-5.1) mmol/L Chloride 108 H (98-107) mmol/L Carbon Dioxide 25 (22-30) mmol/L Anion Gap 10.4 (5-15) MEQ/L BUN 20 (9-20) mg/dL Creatinine 0.90 (0.66-1.25) mg/dL Estimated GFR > 60.0 ML/MIN Glucose 133 H (74-106) mg/dL POC Glucometer 169 H 154 H (74 to 106) mg/dL Calcium 9.0 (8.4-10.2) mg/dL Total Bilirubin 0.30 (0.2-1.3) mg/dL AST 23 (17-59) U/L ALT 22 (0-50) U/L Alkaline Phosphatase 50 (38-126) U/L Serum Total Protein 7.2 (6.3-8.2) g/dL Albumin 3.7 (3.5-5.0) g/dL
[2023-02-17] MEDS: MORPHINE SULFATE 2 MG INJ IV PRN (16:24)
[2023-02-17] MEDS ORDERED: TROUGH DRUG LEVELS IJ ONE (21:30)
[2023-02-17] MEDS: Cymbalta 30 MG Capsule PO SCH (22:19)
[2023-02-18] MEDS: solu-MEDROL 60 MG, Sterile H2O 10 ml 2 ML IV SCH ×6 (00:04→12:28)
[2023-02-18] MEDS: PIPERACILLIN/TAZOBACTAM 3.375 GM in Sodium Chloride 100ML MINI-BAG PLUS 100 ML IV SCH ×3 (00:22→12:28)
[2023-02-18 05:00] LABS: Absolute Neutrophil Ct (ANC) 16.44 x10^3/uL (1.4-6.9); BASOPHIL % 0.1 % (0.0-0.4); Basophil (Absolute #) 0.02 x10^3/uL (0-0.4); Eosinophil (Absolute #) 0 x10^3/uL (0-0.5); Hematocrit 36.5 % (42-50); Hemoglobin 12.1 g/dL (12.5-18.0); IMMATURE GRAN # 0.15 x10^3u/L (0.00-0.03); IMMATURE GRAN % 0.8 % (0.00-0.4); Lymphocyte (Absolute #) 1.44 x10^3/uL (1.0-4.6); Lymphocytes % 7.8 % (24.0-44.0); Mean Cell Volume 86.7 fL (78-100); Mean Corpuscular Hemoglobin 28.7 pg (26-32); Mean Corpuscular Hgb Concent. 33.2 g/dL (32-36); Mean Platelet Volume 11.1 fL (7.5-11.0); Monocyte (Absolute #) 0.41 x10^3/uL (0.0-1.3); Monocytes % 2.2 % (0.0-12.0); Neutrophil % 89.1 % (36.0-66.0); Platelet Count 315 x10^3/uL (150-450); Red Blood Count 4.21 x10^6/uL (4.1-5.6); Red Cell Distribution Width 13.6 % (11.5-14.0); White Blood Count 18.5 x10^3/uL (4.0-10.5)
[2023-02-18 05:16] LABS: ALBUMIN 3.8 g/dL (3.5-5.0); ALKALINE PHOSPHATASE 55 U/L (38-126); ANION GAP 10.3 MEQ/L (5-15); BLOOD UREA NITROGEN 22 mg/dL (9-20); CHLORIDE 107 mmol/L (98-107); Calcium 9.2 mg/dL (8.4-10.2); Carbon Dioxide 27 mmol/L (22-30); Creatinine 1 0.78 mg/dL (0.66-1.25); EST GLOMERULAR FILTRATION RATE > 60.0 ML/MIN; Glucose 150 mg/dL (74-106); Potassium 3.8 mmol/L (3.5-5.1); SGOT/AST 28 U/L (17-59); SGPT/ALT 29 U/L (0-50); SODIUM 140 mmol/L (137-145); Total Protein 7.3 g/dL (6.3-8.2)
[2023-02-18] MEDS ORDERED: VANCOMYCIN 1 GRAM/200 ML BAG 1 GM/200 ML PIGGYBACK IV SCH (10:00)
[2023-02-18] MEDS: Diflucan 100 MG PO SCH (10:19)
[2023-02-18] MEDS: Tricor 145 MG PO SCH (10:19)
[2023-02-18] MEDS: BUMEX 1 MG PO SCH (10:19)
[2023-02-18] MEDS: ECOTRIN 81 MG PO SCH (10:19)
[2023-02-18] MEDS: Protonix 40MG Tablet PO SCH (10:19)
[2023-02-18] MEDS: THERAGRAN MULTIVITAMIN PO SCH (10:19)
[2023-02-18] MEDS: Glucophage 500 MG PO SCH (10:19)
[2023-02-18] MEDS: ZYLOPRIM 300 MG PO SCH (10:19)
[2023-02-18] MEDS: Neurontin PO SCH ×2 (10:19→15:29)
[2023-02-18] MEDS: Zestril 10 MG PO SCH (10:19)
[2023-02-18] MEDS ORDERED: solu-MEDROL ONE (12:25)
[2023-02-18] MEDS ORDERED: DULCOLAX 5 MG PO PRN (14:50)
--- NOTE | 2023-02-18 15:34 | PCM.CONS ---
Podiatry HPI - Consult Date of Consultation Date: 02/18/23 Reason for Consult: Cellulitis to bilateral lower extremity. Consulting Provider: ALEXANDRA SOTOMAYOR DPM - [facility] History of Present Illness: Pool is a very pleasant 63-year-old male with a positive history of type 2 diabetes well controlled with an A1c of 5.73. 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 He did this for several days until he got a new pair of boots. Shortly thereafter patient started having some cracking to the feet along with severe pain. Patient indicates weightbearing was extraordinarily painful for him. He started developing dry skin and itching to the bilateral lower extremity. After seeing quick care sometime last week he was provided an antifungal and the pain and redness got worse. He currently denies any constitutional symptoms of infection. He denies any other pedal complaints at this time Medications & Allergies Home Medications: Home Medication List Allopurinol 300 mg [Zyloprim 300 mg] 300 mg PO DAILY 06/25/13 [History C onfirmed 02/15/23] Duloxetine HCl 30 mg [Cymbalta 30 MG Capsule] 180 mg PO HS 06/25/13 [History Confirmed 02/15/23] Multivitamin [Daily Multivitamin] 1 each PO DAILY 06/25/13 [History Confirmed 02/15/23] Pantoprazole 20 mg [Protonix 20MG Tablet] 40 mg PO DAILY 06/25/13 [History Confirmed 02/15/23] Aspirin EC 81 mg [Ecotrin 81 mg] 81 mg PO DAILY #0 tablet.ec 06/26/13 [Rx Confirmed 02/15/23] Fenofibrate,Micronized 145 mg* [Tricor 145 MG] 145 mg PO DAILY #30 tablet 06/26/13 [Rx Confirmed 02/15/23] Bumetanide [Bumex] 1 mg DAILY 09/13/17 [History Confirmed 02/15/23] Gabapentin 100 mg TID 09/13/17 [History Confirmed 02/15/23] Metformin HCl 500 mg [Glucophage 500 MG] 1,000 mg PO BID 06/25/18 [History Confirmed 02/15/23] Lisinopril 10 mg [Zestril 10 MG] 10 mg PO DAILY 02/15/23 [History Confirmed 02/15/23] Allergies/Adverse Reactions: Allergies Allergy/AdvReac Type Severity Reaction Status Date / Time No Known Drug Allergies Allergy Verified 02/15/23 20:53 - Past Medical History Past Medical History: Yes Neurological History: Peripheral Neuropathy, TIA ENT History: No Pertinent History Cardiac History: High Cholesterol, Hypertension, Other Respiratory History: Emphysema, Sleep Apnea Endocrine Medical History: No Pertinent History Musculoskelatal History: No Pertinent History GI Medical History: GERD History: No Pertinent History Pyscho-Social History: Depression Male Reproductive Disorders: No Pertinent History Comment: Hx: DVT right leg - Past Surgical History Past Surgical History: Yes Neuro Surgical History: No Pertinent History Cardiac History: Cardiac Catheterization Respiratory Surgery: No Pertinent History GI Surgical History: Hernia Repair Genitourinary Surgical Hx: No Pertinent History Musculskeletal Surgical Hx: No Pertinent History Male Surgical History: No Pertinent History - Social History Smoking Status: Current every day smoker How long have you smoked: 10 Exposure to second hand smoke: Yes Alcohol: Occasionally Drug Use: none Physical Exam - General General Appearance: mild distress - Neuro Neurologic: Epicritic and protopathic (Intact) - Vascular Peripheral Pulses: Posterior tibialis: 2+, Dorsalis-Pedis: 2+ Capillary Refill Time: < 3 seconds Hair Growth: Symmetrical and Bilateral Varicosities: Negtive Edema: Pitting Edema Degree: 1+ Skin: Supple, not atrophic (skin supple, exfoliative changes with texture change to the bilateral lower extrmeity.) Skin Temperature: Warm to touch - Muscular Muscle Strength: 5/5 on all 4 quadrants Digital Deformity: no digital deformities Joint ROM: Adequate ROM to MTPJ Equinus: Gastorocnemius equinus - Narrative Narrative Physical Exam: Podiatry Physical Exam Results - Labs Lab/Micro Results: Lab Results-Last 24 Hours 02/17/23 02/17/23 02/17/23 Range/Units 16:16 20:54 21:40 WBC (4.0-10.5) x10^3/uL RBC (4.1-5.6) x10^6/uL Hgb (12.5-18.0) g/dL Hct (42-50) % MCV (78-100) fL MCH (26-32) pg MCHC (32-36) g/dL RDW (11.5-14.0) % Plt Count (150-450) x10^3/uL MPV (7.5-11.0) fL Gran % (36.0-66.0) % Immature Gran % (Auto) (0.00-0.4) % Nucleat RBC Rel Count (0.00-0.1) % Eos # (Auto) (0-0.5) x10^3/uL Immature Gran # (Auto) (0.00-0.03) x10^3u/L Absolute Lymphs (auto) (1.0-4.6) x10^3/uL Absolute Monos (auto) (0.0-1.3) x10^3/uL Absolute Nucleated RBC (0.00-0.01) x10^3u/L Lymphocytes % (24.0-44.0) % Monocytes % (0.0-12.0) % Eosinophils % (0.00-5.0) % Basophils % (0.0-0.4) % Absolute Granulocytes (1.4-6.9) x10^3/uL Basophils # (0-0.4) x10^3/uL Sodium (137-145) mmol/L Potassium (3.5-5.1) mmol/L Chloride (98-107) mmol/L Carbon Dioxide (22-30) mmol/L Anion Gap (5-15) MEQ/L BUN (9-20) mg/dL Creatinine (0.66-1.25) mg/dL Estimated GFR ML/MIN Glucose (74-106) mg/dL POC Glucometer 183 H 150 H (74 to 106) mg/dL Calcium (8.4-10.2) mg/dL Total Bilirubin (0.2-1.3) mg/dL AST (17-59) U/L ALT (0-50) U/L Alkaline Phosphatase (38-126) U/L Serum Total Protein (6.3-8.2) g/dL Albumin (3.5-5.0) g/dL Procalcitonin (0.030-0.080) ng/mL Vancomycin Trough 6.13 L (10-20) ug/mL 02/18/23 02/18/23 02/18/23 Range/Units 04:25 04:43 04:43 WBC 18.5 H (4.0-10.5) x10^3/uL RBC 4.21 (4.1-5.6) x10^6/uL Hgb 12.1 L (12.5-18.0) g/dL Hct 36.5 L (42-50) % MCV 86.7 (78-100) fL MCH 28.7 (26-32) pg MCHC 33.2 (32-36) g/dL RDW 13.6 (11.5-14.0) % Plt Count 315 (150-450) x10^3/uL MPV 11.1 H (7.5-11.0) fL Gran % 89.1 H (36.0-66.0) % Immature Gran % (Auto) 0.8 H (0.00-0.4) % Nucleat RBC Rel Count 0.0 (0.00-0.1) % Eos # (Auto) 0 (0-0.5) x10^3/uL Immature Gran # (Auto) 0.15 H (0.00-0.03) x10^3u/L Absolute Lymphs (auto) 1.44 (1.0-4.6) x10^3/uL Absolute Monos (auto) 0.41 (0.0-1.3) x10^3/uL Absolute Nucleated RBC 0.00 (0.00-0.01) x10^3u/L Lymphocytes % 7.8 L (24.0-44.0) % Monocytes % 2.2 (0.0-12.0) % Eosinophils % 0.0 (0.00-5.0) % Basophils % 0.1 (0.0-0.4) % Absolute Granulocytes 16.44 H (1.4-6.9) x10^3/uL Basophils # 0.02 (0-0.4) x10^3/uL Sodium 140 (137-145) mmol/L Potassium 3.8 (3.5-5.1) mmol/L Chloride 107 (98-107) mmol/L Carbon Dioxide 27 (22-30) mmol/L Anion Gap 10.3 (5-15) MEQ/L BUN 22 H (9-20) mg/dL Creatinine 0.78 (0.66-1.25) mg/dL Estimated GFR > 60.0 ML/MIN Glucose 150 H (74-106) mg/dL POC Glucometer (74 to 106) mg/dL Calcium 9.2 (8.4-10.2) mg/dL Total Bilirubin 0.30 (0.2-1.3) mg/dL AST 28 (17-59) U/L ALT 29 (0-50) U/L Alkaline Phosphatase 55 (38-126) U/L Serum Total Protein 7.3 (6.3-8.2) g/dL Albumin 3.8 (3.5-5.0) g/dL Procalcitonin < 0.030 L (0.030-0.080) ng/mL Vancomycin Trough (10-20) ug/mL 02/18/23 Range/Units 11:21 WBC (4.0-10.5) x10^3/uL RBC (4.1-5.6) x10^6/uL Hgb (12.5-18.0) g/dL Hct (42-50) % MCV (78-100) fL MCH (26-32) pg MCHC (32-36) g/dL RDW (11.5-14.0) % Plt Count (150-450) x10^3/uL MPV (7.5-11.0) fL Gran % (36.0-66.0) % Immature Gran % (Auto) (0.00-0.4) % Nucleat RBC Rel Count (0.00-0.1) % Eos # (Auto) (0-0.5) x10^3/uL Immature Gran # (Auto) (0.00-0.03) x10^3u/L Absolute Lymphs (auto) (1.0-4.6) x10^3/uL Absolute Monos (auto) (0.0-1.3) x10^3/uL Absolute Nucleated RBC (0.00-0.01) x10^3u/L Lymphocytes % (24.0-44.0) % Monocytes % (0.0-12.0) % Eosinophils % (0.00-5.0) % Basophils % (0.0-0.4) % Absolute Granulocytes (1.4-6.9) x10^3/uL Basophils # (0-0.4) x10^3/uL Sodium (137-145) mmol/L Potassium (3.5-5.1) mmol/L Chloride (98-107) mmol/L Carbon Dioxide (22-30) mmol/L Anion Gap (5-15) MEQ/L BUN (9-20) mg/dL Creatinine (0.66-1.25) mg/dL Estimated GFR ML/MIN Glucose (74-106) mg/dL POC Glucometer 177 H (74 to 106) mg/dL Calcium (8.4-10.2) mg/dL Total Bilirubin (0.2-1.3) mg/dL AST (17-59) U/L ALT (0-50) U/L Alkaline Phosphatase (38-126) U/L Serum Total Protein (6.3-8.2) g/dL Albumin (3.5-5.0) g/dL Procalcitonin (0.030-0.080) ng/mL Vancomycin Trough (10-20) ug/mL Microbiology 02/16/23 17:00 Gram Stain - Preliminary Foot - Left Wound Culture - Preliminary No growth. 02/15/23 17:50 Blood Culture - Preliminary Blood NO GROWTH TO DATE 02/16/23 17:00 Yeast/Fungus Susceptibility - Final Foot - Left Not Reportable 02/15/23 17:45 Blood Culture - Preliminary Blood NO GROWTH TO DATE Accuchecks Date 02/18/23 Time 11:32 Assessment/Plan (1) Tinea pedis of both feet Current Visit: Yes Status: Acute Assessment & Plan: Initial patient examination evaluation. Clinical examination is consistent with immersion foot to the bilateral lower extremity complicated by tinea pedis along with fissuring to the medial lateral aspects of the bilateral lower extremity. Wounds were debrided today in order to assess for infection. Patient's white blood cell count is extraordinarily elevated however this is likely in response to the methylprednisone. Patient had no white blood cell count on presentation. Patient would benefit at this time from debridement to wounds. We will start with topical antifungal ketoconazole 2% along with oral terbinafine 250 mg Hcl for short period of time to see if we can get rid of the fungal infection. Recommendation is to do this under occlusion patient does have minor pitting edema to the dorsal aspects of the bilateral lower extremity and for this recommendation for Unna boot therapy recommended. Home physical therapy for dressing changes every other day We will follow-up 1 week status post discharge Code(s): B35.3 - TINEA PEDIS (2) Fissure in skin of both feet Current Visit: Yes Status: Acute Code(s): R23.4 - CHANGES IN SKIN TEXTURE (3) Venous (peripheral) insufficiency Current Visit: Yes Status: Acute Code(s): I87.2 - VENOUS INSUFFICIENCY (CHRONIC) (PERIPHERAL) (4) Localized edema Current Visit: Yes Status: Acute Code(s): R60.0 - LOCALIZED EDEMA (5) Immersion (trench) foot Current Visit: Yes Status: Acute Code(s): T69.029A - IMMERSION FOOT, UNSPECIFIED FOOT, INITIAL ENCOUNTER (6) Cellulitis Current Visit: Yes Status: Acute Code(s): L03.90 - CELLULITIS, UNSPECIFIED (7) DMII (diabetes mellitus, type 2) Current Visit: Yes Status: Acute
--- NOTE | 2023-02-18 16:24 | PCM.DCORD ---
- Discharge Disposition: Home, Self-Care Condition: Good Prescriptions: New terbinafine HCL [Terbinafine HCl] 250 mg PO DAILY #14 tablet Prednisone 10 mg [Deltasone 10 mg] 1 tablet PO DAILY 3 Days #3 tablet Continue Duloxetine HCl 30 mg [Cymbalta 30 MG Capsule] 180 mg PO HS Allopurinol 300 mg [Zyloprim 300 mg] 300 mg PO DAILY Pantoprazole 20 mg [Protonix 20MG Tablet] 40 mg PO DAILY Multivitamin [Daily Multivitamin] 1 each PO DAILY Fenofibrate,Micronized 145 mg* [Tricor 145 MG] 145 mg PO DAILY #30 tablet Aspirin EC 81 mg [Ecotrin 81 mg] 81 mg PO DAILY #0 tablet.ec Bumetanide [Bumex] 1 mg DAILY Gabapentin 100 mg TID Metformin HCl 500 mg [Glucophage 500 MG] 1,000 mg PO BID Lisinopril 10 mg [Zestril 10 MG] 10 mg PO DAILY Follow up with: AUBREY VALDIVIA NP [Primary Care Provider] -
[2023-02-18 16:29] VITALS: BP 158/77; PULSE 65; O2SAT 95
[2023-02-19] MEDS ORDERED: TROUGH DRUG LEVELS IJ ONE (09:30)
[2023-02-19 16:14] LABS: Antinuclear Antiboides, IFA Negative (.)
== END 2023-02-18 17:47 | disposition home or self-care (01) ==
LOC: ED 14:40 → MED SURG 20:27
PROVIDERS: ADMIT Internal Medicine; ATTEND Family Medicine
DX: L03.115 Cellulitis of right lower limb (principal); L03.116 Cellulitis of left lower limb; I10 Essential (primary) hypertension; E78.5 Hyperlipidemia, unspecified; B35.3 Tinea pedis; R23.4 Changes in skin texture; I87.2 Venous insufficiency (chronic) (peripheral); R60.0 Localized edema; T69.021A Immersion foot, right foot, initial encounter; T69.022A Immersion foot, left foot, initial encounter; E11.621 Type 2 diabetes mellitus with foot ulcer; Z20.828 Contact with and (suspected) exposure to other viral communicable diseases; Z72.0 Tobacco use; Z79.899 Other long term (current) drug therapy
CPT/HCPCS: 0241U; 36000; 36415; 80048; 80053; 80202; 82947; 83036; 83605; 84145; 84443; 84550; 85025; 85652; 86038; 87040; 87046; 87070; 87205; 94660; 94760; 96360; 96365; 96374; 99285; 94003; G0378; J2270; J2930; A9270-GY; J3370

== ENCOUNTER 2025-01-13 05:54 | Day surgery (SDC) | payer OTHER ==
[2025-01-13 06:34] LABS: Absolute Neutrophil Ct (ANC) 3.58 x10^3/uL (1.78-5.38); BASOPHIL % 0.7 % (0.2-1.2); Basophil (Absolute #) 0.05 x10^3/uL (0.01-0.08); Eosinophil % 3.4 % (0.8-7.0); Eosinophil (Absolute #) 0.23 x10^3/uL (0.04-0.54); Hematocrit 42.6 % (40.1-51.0); IMMATURE GRAN # 0.02 x10^3u/L (0.001-0.031); IMMATURE GRAN % 0.3 % (0.001-0.429); Lymphocyte (Absolute #) 2.27 x10^3/uL (1.32-3.57); Lymphocytes % 33.7 % (21.8-53.1); Mean Cell Volume 86.4 fL (79.0-92.2); Mean Corpuscular Hemoglobin 28.4 pg (25.7-32.2); Mean Corpuscular Hgb Concent. 32.9 g/dL (32.3-36.5); Mean Platelet Volume 10.7 fL (9.4-12.4); Monocyte (Absolute #) 0.59 x10^3/uL (0.30-0.82); Monocytes % 8.8 % (5.3-12.2); Neutrophil % 53.1 % (34.0-67.9); Platelet Count 272 x10^3/uL (163-337); Red Blood Count 4.93 x10^6/uL (4.63-6.08); Red Cell Distribution Width 13.2 % (11.6-14.4); White Blood Count 6.7 x10^3/uL (4.23-9.07)
[2025-01-13 06:59] LABS: ANION GAP 13.3 MEQ/L (5-15); Calcium 9.4 mg/dL (8.4-10.2); Creatinine 1 1.14 mg/dL (0.66-1.25); EST GLOMERULAR FILTRATION RATE 71.8 ML/MIN; Potassium 4.1 mmol/L (3.5-5.1)
[2025-01-13] MEDS: Lactated Ringers 1,000 ML IV SCH (06:59)
[2025-01-13] MEDS ORDERED: propofoL IV ONE (07:35)
[2025-01-13] MEDS ORDERED: Versed 2 MG/2 ML Injection ONE (07:35)
[2025-01-13 08:41] VITALS: BP 133/74; PULSE 66; RESP 18; TEMP 97.2; O2SAT 100
--- NOTE | 2025-01-14 09:28 | OP ---
SURGERY DATE/TIME: 01/13/2025 [id number] PREOPERATIVE DIAGNOSIS: Positive Cologuard. POSTOPERATIVE DIAGNOSIS: Colon polyps x3. PROCEDURE: Colonoscopy. SURGEON: Parish Bauman MD ANESTHESIA: MAC by Jairo Paul CRNA. ESTIMATED BLOOD LOSS: Minimal. SPECIMENS: Three hot forceps polypectomies, 1 from the transverse colon and 2 from the rectum. DESCRIPTION OF PROCEDURE AND FINDINGS: After informed written consent was obtained, the patient was taken to the endoscopy suite. He was placed in left lateral decubitus position and anesthesia was titrated to desired level of consciousness. Digital rectal exam showed normal sphincter tone and no internal lesions. The scope was inserted into the rectum and sequentially the entire colonic mucosa was traversed. The level of the cecum was reached and verified under direct visualization of the ileocecal valve. Upon withdrawal, careful mucosal inspection revealed 1 small sessile polyp in the proximal transverse colon. It was grasped with a forceps, cauterized, removed in its entirety, and sent for pathology testing. Area was hemostatic following removal of this polyp. Upon further withdrawal, there were no mucosal lesions encountered until the level of the rectum. There were 2 small sessile polyps in the rectal area. Both likewise were grasped with a forceps, cauterized, removed in their entirety, and sent for pathology testing in the same specimen container. Prior to withdrawal, retroflexion was performed and showed no internal lesions. The scope was removed, and the patient was transferred to the recovery room in good condition. He will follow up in 1 week for pathology report.
== END 2025-01-13 08:50 | disposition home or self-care (01) ==
LOC: SDC 05:54
PROVIDERS: ATTEND Family Medicine
DX: D12.3 Benign neoplasm of transverse colon (principal); R19.5 Other fecal abnormalities; E11.9 Type 2 diabetes mellitus without complications; I10 Essential (primary) hypertension
CPT/HCPCS: 36415; 80048; 82947; 85025; 93005; J2250; J2704